=== PATIENT | male | born 1965 | race Caucasian/White ===

== ENCOUNTER 2018-06-22 11:17 | Emergency (ER) | payer OTHER, MEDICAID, SELFPAY ==
--- NOTE | 2018-06-22 11:19 | ED_ITS ---
HPI - Extremity Injury (Upper) General Chief Complaint: Extremity Injury, Upper Stated Complaint: POSSIBLY SNAPPED OR TORE TENDON IN FINGER Time Seen by Provider: 06/22/18 11:18 Source: patient Mode of arrival: ambulatory Limitations: no limitations History of Present Illness HPI narrative: Patient is here for evaluation of left middle finger injury. Patient states that yesterday he was at [employer] and was trying to get a box of tile from the back of a shelf. He states that he could only reach the shelf by the very tip of his left middle finger. As he tried to pull he felt 3 ?pops? at the base of his finger. He states that since then he has had pain at this area and some bruising. Took some Advil last evening and also iced the finger. Related Data Previous Rx's Medication Instructions Recorded hydrocodone-acetaminophen 1 tab PO Q6H PRN #5 tab 06/22/18 Review of Systems Constitutional Denies fever(s) Musculoskeletal Comments: Pain at the base of the left middle finger Integumentary/Breasts Comments: Bruising on the palm of his hand Neurologic Comments: No change in sensation left hand Hematologic/Lymphatic Denies easy bleeding and Denies easy bruising PFSH Social History Smoking Status: Never smoker Comment: Reviewed patient's past medical surgical family and social history Exam Initial Vital Signs Initial Vital Signs: Vital Signs Temperature 98.2 F 06/22/18 11:31 Pulse Rate 80 06/22/18 11:31 Respiratory Rate 20 06/22/18 11:31 Blood Pressure 130/72 H 06/22/18 11:31 Pulse Oximetry 100 06/22/18 11:31 Const General: cooperative, healthy appearing, comfortable, well developed, well groomed and No acute distress Orientation: alert, awake and oriented x3 Cardio Pulses: radial pulses present on the left Skin Lesions: no lesions Other: Mild ecchymosis at the base of the left middle finger over the MCP joint on the palmar aspect of the hand Neuro Other: Sensation intact to light touch left upper extremity specifically the left middle finger Extrem Other: Left wrist unremarkable Left hand unremarkable except for tenderness to palpation over the MCP joint and proximal middle finger of the left hand. Swelling of the left middle finger. Patient is able to flex and extend the MCP, PIP, D IP joints in isolation both active and passive. Does have some difficulty with flexing of the PIP joint secondary to swelling just proximal to this area. Course Orders Ordered: ED Orders 06/22/18 11:33 XR hand LT min 3V Stat Vital Signs - 8 hr 06/22/18 11:31 Temperature 98.2 F Pulse Rate 80 Respiratory Rate 20 Blood Pressure 130/72 H Pulse Oximetry 100 MDM - Extremity Injury (Upper) Imaging Data X-ray left hand: My impression: No fractures No dislocations MDM Narrative Medical decision making narrative: Patient is neurovascularly intact. Is able to flex and extend active and passive at all joints of the left middle finger altogether and in isolation. Currently have low suspicion for a complete disruption of any flexor tendons. No fractures noted on the x-ray. Will place the patient in a finger splint for soft tissue rest that he can take off to shower and wash his hands. He was instructed that if his symptoms do not improve he should contact his primary care doctor for a referral to see a hand specialist. He expressed understanding and agreement with plan Discharge Plan Departure Patient Disposition: Home, Self-Care Clinical Impression: Injury of finger of left hand Instructions: How To Perform RICE (Rest, Ice, Compress, Elevate) Activity Restrictions/Additional Instructions: The splint can be removed to shower and wash your hands. Keep it on for the next week for soft tissue rest. You can ice your finger. Keep your hand elevated as much as possible. If your symptoms do not improve contact her primary care doctor to discuss the indications for referral to see Orthopedic surgery. Prescriptions: New hydrocodone-acetaminophen 5-325 mg tablet 1 tab PO Q6H PRN (Reason: pain) Qty: 5 RF: 0
[2018-06-22 11:31] VITALS: BP 130/72; PULSE 80; RESP 20; TEMP 36.8; O2SAT 100
--- NOTE | 2018-06-22 11:33 | DI.RAD.S_ITS ---
PROCEDURE: XR HAND LT MIN 3V INDICATIONS: Pain after injury of MCP of middle finger TECHNIQUE: 3 views of the hand(s) acquired. COMPARISON: None. FINDINGS: Bones: No fractures or dislocations. Carpal bones are normally aligned. No suspicious bony lesions. Soft tissues: No suspicious soft tissue calcifications. IMPRESSION: No acute radiographic findings. If pain persists, repeat study in 5-7 days is recommended to exclude occult fracture. Dictated by: Calli Valentin M.D. on 06/22/2018 at 12:05 Approved by: Calli Valentin M.D. on 06/22/2018 at 12:05
[2018-06-22 12:14] VITALS: BP 109/68; PULSE 58; RESP 14; O2SAT 99
== END 2018-06-22 12:15 | disposition home or self-care (01) ==
PROVIDERS: Emergency Provider Emergency Medicine; PCP Family Medicine
DX: S69.92XA Unspecified injury of left wrist, hand and finger(s), initial encounter (principal); X50.9XXA Other and unspecified overexertion or strenuous movements or postures, initial encounter
CPT/HCPCS: 29130; 73130; 99283

== ENCOUNTER → 2018-07-19 06:44 | Outpatient (CLI) | payer OTHER, MEDICAID, SELFPAY ==
--- NOTE | 2018-07-19 | DI.MRI.S_ITS ---
PROCEDURE: MR HAND LT WO/W CON INDICATIONS: LEFT HAND INJURY TECHNIQUE: Noncontrast coronal T1 spin echo and T2 fast spin echo with fat saturation, axial proton density fast spin echo and T2 fast spin echo with fat saturation, axial T1 spin echo with fat saturation, sagittal T1 spin echo and STIR through the hand and fingers. Post-contrast axial, coronal, and sagittal T1 spin echo through the hand centered at the 3rd digit. COMPARISON: [facility], CR, XR HAND LT MIN 3V, 06/22/2018, 11:15. FINDINGS: Image quality: Excellent. Bones: The bones are normally aligned, without marrow contusions or fractures. No intra-osseous lesions. Interphalangeal joints: The accessory and proper collateral ligaments appear intact. The volar plates appear grossly intact, with evaluation limited by the large [id number]. The extensor central slips appear intact on sagittal images. Metacarpophalangeal joints: The accessory and proper collateral ligaments appear intact, as well as the volar plate and adjacent deep transverse metacarpal ligaments. The sagittal bands of the extensor lord appear grossly preserved. Extensor apparatus: The central slips insert normally on the middle phalangeal base. The conjoint and terminal tendons insert normally on the distal phalangeal bases. More proximal portions of the extensor tendons also appear normal. Flexor apparatus: The flexor digitorum superficialis and profundus tendons both appear grossly intact with peritendinous edema and small amount of fluid along the course of the 3rd flexor tendons. There is mild volar displacement of the 3rd flexor tendons at the proximal interphalangeal joint as well as along the proximal phalanx. Findings likely represent disruption of the A3 laquita and as well as possible disruption of the A2 and A4 pulleys. There is minimal peritendinous edema also noted along the 4th flexor tendons without associated displacement to suggest laquita disruption. Soft tissues: Visualized muscles demonstrate normal bulk and internal signal. No intramuscular masses identified. No ganglion cysts. IMPRESSION: 1. Peritendinous edema and fluid demonstrated along the 3rd flexor tendons compatible with a mild strain with associated volar displacement likely representing disruption of the A2 laquita and possibly the A2 and A4 pulleys. Dictated by: Heriberto Brown M.D. on 07/19/2018 at 11:07 Approved by: Heriberto Brown M.D. on 07/19/2018 at 11:27
== END ==
PROVIDERS: Family Provider Family Medicine; PCP Family Medicine; Visit Provider Family Medicine
DX: S69.92XA Unspecified injury of left wrist, hand and finger(s), initial encounter (principal)
CPT/HCPCS: 73220; A9579

== ENCOUNTER → 2019-08-15 07:16 | Outpatient (CLI) | payer OTHER, SELFPAY ==
[2019-08-15 07:48] LABS: Add Manual Diff / Slide Review NO; Basophils Absolute Auto 0 /uL (0-100); Basophils Percent Auto 1.5 % (0-2); Eosinophils Absolute Auto 200 /uL (0-450); Eosinophils Percent Auto 5.6 % (2-4); Hematocrit 43.5 % (41-53); Hemoglobin 15.1 g/dL (13.5-17.5); Lymphocytes Absolute Auto 1400 /uL (1100-4500); Lymphocytes Percent Auto 44.6 % (25-40); Mean Corpuscular HGB Conc 34.7 % (30-36); Mean Corpuscular Hemoglobin 30.2 PG (26-34); Mean Corpuscular Volume 87.3 fL (80-100); Monocytes Absolute Auto 300 /uL (0-900); Monocytes Percent Auto 8.7 % (3-14); Neutrophils Absolute Auto 1200 /uL (1500-7000); Neutrophils Percent Auto 39.6 % (50-75); Platelet Count 187 X10^3/uL (150-400); Red Blood Cell Count 4.98 X10^6/uL (4.5-5.9); Red Cell Distribution Width 12.6 % (11.6-14.8); White Blood Cell Count 3.1 X10^3/uL (4.5-11.0)
[2019-08-15 08:27] LABS: HEMOLYSIS < 15 (0-50); Iron 94 ug/dL (49-181)
[2019-08-15 08:29] LABS: Alanine Aminotransferase 18 IU/L (21-72); Albumin 4.5 g/dL (3.5-5.0); Albumin Globulin Ratio 1.8 (1.0-2.8); Alkaline Phosphatase 52 U/L (38-126); Aspartate Aminotransferase 31 IU/L (17-59); Bilirubin Total 0.9 mg/dL (0.2-1.3); Blood Urea Nitrogen 12 mg/dL (9-20); Calcium 9.6 mg/dL (8.4-10.2); Carbon Dioxide 28 mmol/L (22-32); Chloride 105 mmol/L (98-107); Cholesterol 169 mg/dL (140-199); Estimated Glomerular Filt Rate > 60.0 mL/min (>60); Globulin 2.5 g/dL (1.7-4.1); Glucose 76 mg/dL (70-100); HDL Cholesterol 50 mg/dL (40-60); HEMOLYSIS < 15 (0-50); LDL Cholesterol Calculated 81 mg/dL (<100); Potassium 4.2 mmol/L (3.4-5.1); Sodium 142 mmol/L (137-145); Triglycerides 192 mg/dL (35-150)
[2019-08-15 08:37] LABS: Percent Iron Saturation 31 % (20-50); Total Iron Binding Capacity 303 ug/dL (261-462); Transferrin 250 mg/dL (206-381)
[2019-08-15 08:45] LABS: Vitamin D 25 Hydroxy (D3) 33.7 ng/mL (30.0-100.0)
[2019-08-15 08:58] LABS: Prostate Specific Antigen Scrn 0.496 ng/mL (0.1-4.0)
[2019-08-15 09:00] LABS: TSH w/ Reflex to FT4 1.92 uIU/mL (0.47-4.68)
[2019-08-15 09:17] LABS: Vitamin B12 392 pg/mL (239-931)
== END ==
PROVIDERS: PCP Family Medicine; Visit Provider Family Medicine
DX: R10.9 Unspecified abdominal pain (principal); Z13.6 Encounter for screening for cardiovascular disorders; Z12.5 Encounter for screening for malignant neoplasm of prostate
CPT/HCPCS: 36415; 80053; 80061; 82306; 82607; 83516; 83540; 83550; 84443; 85025; G0103

== ENCOUNTER → 2020-04-20 14:14 | Outpatient (CLI) | payer OTHER, SELFPAY ==
--- NOTE | 2020-04-20 14:15 | DI.MRI.S_ITS ---
PROCEDURE: MR LUMBAR SPINE WO CON INDICATIONS: LBP with radiculopathy TECHNIQUE: Noncontrast sagittal T1 spin echo and T2 fast echo, sagittal STIR, axial T1 and T2 fast spin echo through the lumbar spine. In cases with scoliosis, additional coronal T2 fast spin echo may be performed. COMPARISON: None. FINDINGS: Image quality: Excellent. Alignment and Curvature: There is normal bony alignment. Bone Marrow: Minimal reactive endplate changes adjacent to the L4-L5 disc. Small, benign, intraosseous hemangioma noted in the L1 vertebral body. No acute vertebral body compression fractures. Spinal Cord: Conus medullaris terminates at the L1 level. Visualized cord demonstrates normal signal and size. Paraspinous Soft Tissues: No paravertebral masses. L1-L2: Normal appearance. L2-L3: Normal appearance. L3-L4: Normal appearance. L4-L5: Loss of disc signal. Mild, diffuse disc bulge. Small left foraminal disc protrusion. Mild bilateral facet hypertrophy. No central stenosis. Mild right and moderate left neural foraminal narrowing. Left foraminal disc protrusion abuts and slightly compresses the exiting left L4 nerve root. L5-S1: Slight loss of disc signal. Minimal, diffuse disc bulge. Mild bilateral facet hypertrophy. No central stenosis. No neural foraminal narrowing. Focal high intensity zone is noted in the left subarticular annulus compatible with a fissure. IMPRESSION: 1. Mild L4-L5 and L5-S1 degenerative disc disease. 2. Mild L4-L5 and L5-S1 facet arthropathy. 3. Small left foraminal L4-L5 disc protrusion which abuts and slightly compresses the exiting left L4 nerve root. Please correlate clinically. 4. No central stenosis 5. Mild right and moderate left L4-L5 neural foraminal narrowing. 6. L5-S1 disc annulus fissure. Dictated by: Darby Pabon MD, PhD on 04/20/2020 at 15:19 Approved by: Darby Pabon MD, PhD on 04/20/2020 at 15:23
== END ==
PROVIDERS: PCP Family Medicine; Referring Provider Family Medicine; Visit Provider Family Medicine
DX: M54.5 Low back pain (principal); M51.16 Intervertebral disc disorders with radiculopathy, lumbar region; M51.17 Intervertebral disc disorders with radiculopathy, lumbosacral region; M47.27 Other spondylosis with radiculopathy, lumbosacral region; M47.26 Other spondylosis with radiculopathy, lumbar region; M48.061 Spinal stenosis, lumbar region without neurogenic claudication
CPT/HCPCS: 72148

== ENCOUNTER 2020-09-07 14:03 | Inpatient (IN) | payer OTHER, SELFPAY ==
[2020-09-07 14:08] VITALS: BP 135/85; PULSE 61; RESP 16; TEMP 36.4; O2SAT 100; BMI 25.8
--- NOTE | 2020-09-07 14:27 | ED_ITS ---
HPI - Abdominal Pain General Chief Complaint: Abdominal Pain Stated Complaint: LOWER LEFT SEVERE PAIN Time Seen by Provider: 09/07/20 14:19 Source: patient Mode of arrival: Family Vehicle Limitations: no limitations History of Present Illness HPI narrative: Patient complains slow onset of left lower quadrant pain wo rsening yesterday. Worse with movement. Worse with walking. No nausea vomiting diarrhea blood in stools or black stools or urinary complaints. Last colonoscopy 7 years ago. No abnormal findings according to patient. No prior history of diverticulitis or kidney stones. Pain does not radiate MD complaint: abdominal pain Related Data Previous Rx's Medication Instructions Recorded protriptyline 5 mg tablet 5 mg PO DAILY #30 tab 08/13/19 methocarbamol 500 mg tablet 500 mg PO TID PRN #30 tab 04/14/20 oxycodone 5 mg capsule 5 mg PO Q8H PRN #20 cap 04/20/20 gabapentin 300 mg capsule 300 mg PO .COMPLEX #90 cap 04/28/20 methylprednisolone 4 mg tablets in See Rx Instructions PO PER PKG DIR 04/28/20 a dose pack #21 each Allergies Allergy/AdvReac Type Severity Reaction Status Date / Time meperidine [From Demerol] AdvReac Intermediate anxiety, Verified 04/28/20 08:16 dizziness, nausea fentanyl AdvReac Mild anxiety, Verified 04/28/20 08:16 dizziness, nausea, depression Review of Systems Review of Systems Narrative: GENERAL: Denies chills, fatigue, malaise, fever, sweats. HEENT: Denies sinus pain, ear pain, sore throat, difficulty swallowing RESPIRATORY: Denies dyspnea, cough CARDIOVASCULAR: Denies chest pain, palpitations, edema, GASTROINTESTINAL: Denies nausea, vomiting, complains abdominal pain, denies diarrhea, constipation, melena. : Denies dysuria, frequency, hematuria MUSCULOSKELETAL: denies muscle or bony pain SKIN: Denies rash, skin lesions NEUROLOGIC: Denies weakness, headache, numbness, change in speech, confusion PSYCHIATRIC: No SI or HI or hallucinations ROS Unobtainable: All systems reviewed & are unremarkable except as noted in HPI and below Patient History Medical History Chronic back pain (Chronic 1991) Fractures (Resolved 1988) Herniated nucleus pulposus, L4-5 (Acute) Lumbosacral radiculopathy at L5 (Acute) Shoulder pain (Chronic 2013) Surgical History Anesthesia (Resolved) History of excision of mass (Resolved 1981) History of nasal surgery (Resolved 1979) History of sinus surgery (Resolved 2013) Status post wrist surgery (Resolved 1998) Status post wrist surgery (Resolved 1989) Status post wrist surgery (Resolved 1988) Family History Father No problems noted. Grandfather No problems noted. Grandmother No problems noted. Mother No problems noted. Grandfather No problems noted. Grandmother No problems noted. Social History marital status: pets and animals: Yes education level: other occupational status: employed other: music,diving,boating seatbelt use: always helmet use: Yes water heater temp set < 120 deg: Yes working smoke detector in home: Yes fire extinguisher in home: Yes carbon monox detector in home: Yes firearms in home: Yes Smoking Status: Never smoker alcohol intake: current during the past year weight has: remained stable well-balanced diet: daily or most days daily servings fruits/ve-4 caffeine: Yes eating out: 1-3 times/week Type(s) of exercise: decline to answer frequency: 3-4 times per week duration: 45-60 minutes/day Smoking Status: Never smoker alcohol intake frequency: holidays/special occasions only Substance Use Type: does not use Exam Narrative Exam Narrative: GENERAL: patient appears stated age. Well-nourished, well- developed patient, in no distress, not toxic not dyspneic HEAD: Normocephalic. EYES: Pupils equal round and reactive. No scleral icterus. No injection no discharge ENT: Mucous membranes moist. No drooling no tongue elevation no trismus no malocclusion NECK: Trachea midline. Non tender CARDIOVASCULAR: Regular rate and rhythm without murmurs, gallops, or rubs. RESPIRATORY: Clear to auscultation. Breath sounds equal bilaterally. No wheezes, rales, or rhonchi. GASTROINTESTINAL: Abdomen soft, reproducible tenderness touch left lower quadrant. No peritoneal signs. Bowel sounds present. EXTREMITIES: No gross deformities. NEURO: AOx4. SKIN: Warm and dry PSYCH: Not anxious, is cooperative Initial Vital Signs Initial Vital Signs: Vital Signs Temperature 97.5 F L 09/07/20 14:08 Pulse Rate 61 09/07/20 14:08 Respiratory Rate 16 09/07/20 14:08 Blood Pressure 135/85 09/07/20 14:08 Pulse Oximetry 100 09/07/20 14:08 Course Course Course Narrative: Still in pain after Dilaudid and morphine. Decision to Admit Date: 09/07/20 Decision to Admit time: 16:28 Orders Ordered: ED Orders 09/07/20 14:20 Complete Blood Count AUTO DIFF Stat Comprehensive Metabolic Panel Stat 09/07/20 14:30 CT abdomen pelvis w con Stat Gabapentin (Neurontin) 300 mg PO .COMPLEX TRACEE Hydromorphone HCl (Dilaudid) 1 mg IV Q4H PRN PRN Reason: Pain, Severe (7-10) Last Admin: 09/07/20 18:27 Dose: 1 mg Documented by: FLORENCIO Lactated Ringer's (Lactated Ringers) 1,000 mls @ 100 mls/hr IV CONT TRACEE Last Admin: 09/07/20 18:36 Dose: 100 mls/hr Documented by: FLORENCIO Ciprofloxacin (Cipro) 400 mg in 200 mls @ 200 mls/hr IV Q12H TRACEE Metronidazole (Flagyl) 500 mg in 100 mls @ 100 mls/hr IV Q8H TRACEE Ketorolac Tromethamine (Toradol) 30 mg IV Q6HR TRACEE Stop: 09/12/20 17:07 Last Admin: 09/07/20 18:35 Dose: 30 mg Documented by: FLORENCIO Methocarbamol (Robaxin) 500 mg PO TID PRN PRN Reason: back pain Last Admin: 09/07/20 18:28 Dose: 500 mg Documented by: FLORENCIO Morphine Sulfate (Morphine) 4 mg IV Q4HR PRN PRN Reason: Pain, Severe (7-10) Naloxone HCl (Narcan) 0.2 mg IV Q2MIN PRN PRN Reason: Opiate Reversal Protriptyline 5 Mg 5 mg PO DAILY TRACEE Ondansetron HCl (Zofran) 4 mg IV Q8HR PRN PRN Reason: Nausea And Vomiting Discontinued Medications Hydromorphone HCl (Dilaudid) 1 mg IV NOW ONE Stop: 09/07/20 15:44 Last Admin: 09/07/20 16:00 Dose: 1 mg Documented by: SUSSY Hydromorphone HCl (Dilaudid) 1 mg IV NOW ONE Stop: 09/07/20 17:27 Last Admin: 09/07/20 17:33 Dose: 1 mg Documented by: SUSSY Sodium Chloride (Normal Saline 0.9%) 1,000 mls @ 1,000 mls/hr IV BOLUS ONE Stop: 09/07/20 15:25 Last Infusion: 09/07/20 16:00 Dose: 0 mls/hr Documented by: Admin: 09/07/20 14:46 Dose: 1,000 mls/hr Documented by: SUSSY Metronidazole (Flagyl) 500 mg in 100 mls @ 100 mls/hr IV NOW ONE Stop: 09/07/20 17:26 Last Admin: 09/07/20 16:47 Dose: 100 mls/hr Documented by: SUSSY Morphine Sulfate (Morphine) 4 mg IV NOW ONE Stop: 09/07/20 14:27 Last Admin: 09/07/20 14:46 Dose: 4 mg Documented by: SUSSY Ondansetron HCl (Zofran) 4 mg IV NOW ONE Stop: 09/07/20 14:27 Last Admin: 09/07/20 14:46 Dose: 4 mg Documented by: SUSSY Reevaluation(s) Reevaluation #1: Patient still has pain after morphine and Dilaudid. Reviewed with patient results. He agrees with admission for pain control and IV antibiotics Time: 16:29 Consultations Consultation #1: s/w pcp dr hahn...will see pt in ER ..agrees with admit Vital Signs Vital signs: Vital Signs - 8 hr 09/07/20 14:08 09/07/20 16:15 Temperature 97.5 F L Pulse Rate 61 54 L Respiratory Rate 16 16 Blood Pressure 135/85 128/68 Pulse Oximetry 100 100 MDM - Abdominal Pain Differential Diagnosis Differential diagnosis: Likely abdominal pain, acute appendicitis, calculus of kidney, diverticulitis and small bowel obstruction Lab Data Attestation: I reviewed the patient's lab results. Result diagrams: 09/07/20 14:20 09/07/20 14:20 Labs: Lab Results 09/07/20 09/07/20 Range/Units 14:20 14:20 WBC 7.3 (4.5-11.0) X10^3/uL RBC 5.01 (4.5-5.9) X10^6/uL Hgb 15.2 (13.5-17.5) g/dL Hct 44.0 (41-53) % MCV 87.7 (80-100) fL MCH 30.3 (26-34) PG MCHC 34.6 (30-36) % RDW 12.8 (11.6-14.8) % Plt Count 194 (150-400) X10^3/uL Neut % (Auto) 67.4 (50-75) % Lymph % (Auto) 23.1 L (25-40) % Graham % (Auto) 7.5 (3-14) % Eos % (Auto) 1.5 L (2-4) % Baso % (Auto) 0.5 (0-2) % Neut # (Auto) 4900 (5287-6861) /uL Lymph # (Auto) 1700 (3965-8170) /uL Graham # (Auto) 500 (0-900) /uL Eos # (Auto) 100 (0-450) /uL Baso # (Auto) 0 (0-100) /uL Sodium 136 L (137-145) mmol/L Potassium 4.3 (3.4-5.1) mmol/L Chloride 102 (98-107) mmol/L Carbon Dioxide 27 (22-32) mmol/L BUN 16 (9-20) mg/dL Creatinine 0.97 (0.66-1.25) mg/dL Estimated GFR > 60.0 (>60) mL/min BUN/Creatinine Ratio 16.5 (6-22) Glucose 90 (70-100) mg/dL Calcium 9.2 (8.4-10.2) mg/dL Total Bilirubin 1.1 (0.2-1.3) mg/dL AST 33 (17-59) IU/L ALT 27 (<50) IU/L Alkaline Phosphatase 59 (38-126) U/L Total Protein 7.6 (6.3-8.2) g/dL Albumin 4.7 (3.5-5.0) g/dL Globulin 2.9 (1.7-4.1) g/dL Albumin/Globulin Ratio 1.6 (1.0-2.8) Imaging Data CT scan - abdomen/pelvis: Radiologist's Impression: [address] [address] [address] Scan Report Signed Patient: Gm Delgado [facility]#: [id number] : 1965Acct:[id number] Age/Sex: 55 / MDate of Service: 09/07/20 Loc: ED Accession Number: [id number] Procedure: CT abdomen pelvis w con Ordering Provider: Ángel Chung MD PROCEDURE: CT ABDOMEN PELVIS W CON INDICATIONS: IV contrast only/left lower quadrant pain TECHNIQUE: After the administration of intravenous contrast, 5 mm thick sections acquired from the diaphragm to the symphysis. 5 mm coronal and sagittal reformats were acquired. For radiation dose reduction, the following was used: automated exposure control, a djustment of mA and/or kV according to patient size. COMPARISON: None. FINDINGS: Image quality: Excellent. ABDOMEN: Lung bases: Lung bases are clear. Heart size is normal. Solid organs: Liver is normal in size. Curvilinear enhancing focus in the inferior margin of the right lobe of the liver, (2/34). Gallbladder is unremarkable. Biliary system is non dilated. Pancreas enhances normally. Spleen is normal in size and enhancement. No adrenal nodules. Kidneys demonstrate normal size and enhancement, without hydronephrosis. Small simple cyst in the right kidney. Punctate nonobstructing kidney stone in the left kidney, (2/24). Peritoneum and bowel: Moderate inflammatory change in the left lower quadrant surrounding the distal descending colon, (4/27). This is adjacent to a colonic diverticuli. Mild diverticulosis. No extraluminal gas or loculated fluid collection. No small bowel obstruction. Normal appendix. No pneumoperitoneum. Nodes and vessels: No retroperitoneal or mesenteric adenopathy by size criteria. Aorta and inferior vena cava are normal in size. Miscellaneous: No ventral hernias. Periumbilical scar. PELVIS: Genitourinary: Bladder is unremarkable. Trace free fluid in the pelvis. Miscellaneous: Question of bilateral fat containing inguinal hernias. No adenopathy. Bones: No suspicious bony lesions. No vertebral body compression fractures. IMPRESSION: 1. Moderate acute sigmoid colon diverticulitis. No loculated fluid collection to suggest abscess. 2. Enhancing focus in the inferior margin of the liver. This may represent a hemangioma or perfusion abnormality. 3. A punctate nonobstructing left kidney stone. Dictated by: Michael Jorgensen M.D. on 09/07/2020 at 14:48 Approved by: Michael Jorgensen M.D. on 09/07/2020 at 15:02 MDM Narrative Medical decision making narrative: Appropriate for admission. For pain control. Requiring morphine and Dilaudid. Discharge Plan Departure Patient Disposition: Admitted as Observation Clinical Impression: Diverticulitis of sigmoid colon Referrals: Melisa Hahn MD [Primary Care Provider] - Admit Date/Time: 09/07/20 16:52 Admit Provider: Melisa Hahn
--- NOTE | 2020-09-07 14:30 | DI.CT.S_ITS ---
PROCEDURE: CT ABDOMEN PELVIS W CON INDICATIONS: IV contrast only/left lower quadrant pain TECHNIQUE: After the administration of intravenous contrast, 5 mm thick sections acquired from the diaphragm to the symphysis. 5 mm coronal and sagittal reformats were acquired. For radiation dose reduction, the following was used: automated exposure control, adjustment of mA and/or kV according to patient size. COMPARISON: None. FINDINGS: Image quality: Excellent. ABDOMEN: Lung bases: Lung bases are clear. Heart size is normal. Solid organs: Liver is normal in size. Curvilinear enhancing focus in the inferior margin of the right lobe of the liver, (2/34). Gallbladder is unremarkable. Biliary system is non dilated. Pancreas enhances normally. Spleen is normal in size and enhancement. No adrenal nodules. Kidneys demonstrate normal size and enhancement, without hydronephrosis. Small simple cyst in the right kidney. Punctate nonobstructing kidney stone in the left kidney, (2/24). Peritoneum and bowel: Moderate inflammatory change in the left lower quadrant surrounding the distal descending colon, (4/27). This is adjacent to a colonic diverticuli. Mild diverticulosis. No extraluminal gas or loculated fluid collection. No small bowel obstruction. Normal appendix. No pneumoperitoneum. Nodes and vessels: No retroperitoneal or mesenteric adenopathy by size criteria. Aorta and inferior vena cava are normal in size. Miscellaneous: No ventral hernias. Periumbilical scar. PELVIS: Genitourinary: Bladder is unremarkable. Trace free fluid in the pelvis. Miscellaneous: Question of bilateral fat containing inguinal hernias. No adenopathy. Bones: No suspicious bony lesions. No vertebral body compression fractures. IMPRESSION: 1. Moderate acute sigmoid colon diverticulitis. No loculated fluid collection to suggest abscess. 2. Enhancing focus in the inferior margin of the liver. This may represent a hemangioma or perfusion abnormality. 3. A punctate nonobstructing left kidney stone. Dictated by: Michael Jorgensen M.D. on 09/07/2020 at 14:48 Approved by: Michael Jorgensen M.D. on 09/07/2020 at 15:02
[2020-09-07 14:39] LABS: Add Manual Diff / Slide Review NO; Alanine Aminotransferase 27 IU/L (<50); Albumin 4.7 g/dL (3.5-5.0); Albumin Globulin Ratio 1.6 (1.0-2.8); Alkaline Phosphatase 59 U/L (38-126); Aspartate Aminotransferase 33 IU/L (17-59); BUN Creatinine Ratio 16.5 (6-22); Basophils Absolute Auto 0 /uL (0-100); Basophils Percent Auto 0.5 % (0-2); Bilirubin Total 1.1 mg/dL (0.2-1.3); Blood Urea Nitrogen 16 mg/dL (9-20); Calcium 9.2 mg/dL (8.4-10.2); Carbon Dioxide 27 mmol/L (22-32); Chloride 102 mmol/L (98-107); Eosinophils Absolute Auto 100 /uL (0-450); Eosinophils Percent Auto 1.5 % (2-4); Estimated Glomerular Filt Rate > 60.0 mL/min (>60); Globulin 2.9 g/dL (1.7-4.1); Glucose 90 mg/dL (70-100); HEMOLYSIS 21 (0-50); Hemoglobin 15.2 g/dL (13.5-17.5); Lymphocytes Absolute Auto 1700 /uL (1100-4500); Lymphocytes Percent Auto 23.1 % (25-40); Mean Corpuscular HGB Conc 34.6 % (30-36); Mean Corpuscular Hemoglobin 30.3 PG (26-34); Mean Corpuscular Volume 87.7 fL (80-100); Monocytes Absolute Auto 500 /uL (0-900); Monocytes Percent Auto 7.5 % (3-14); Neutrophils Absolute Auto 4900 /uL (1500-7000); Neutrophils Percent Auto 67.4 % (50-75); Platelet Count 194 X10^3/uL (150-400); Potassium 4.3 mmol/L (3.4-5.1); Red Blood Cell Count 5.01 X10^6/uL (4.5-5.9); Red Cell Distribution Width 12.8 % (11.6-14.8); Sodium 136 mmol/L (137-145); Total Protein 7.6 g/dL (6.3-8.2); White Blood Cell Count 7.3 X10^3/uL (4.5-11.0)
[2020-09-07] MEDS: ONDANSETRON 4 MG/2 ML INJ IV (14:46)
[2020-09-07] MEDS: SODIUM CHLORIDE 0.9% 1,000 ML 1000 ML IV (14:46)
[2020-09-07] MEDS: MORPHINE 4 MG/ML INJ IV ×2 (14:46→21:35)
[2020-09-07] MEDS: HYDROMORPHONE 1 MG INJ IV ×3 (16:00→18:27)
[2020-09-07 16:15] VITALS: BP 128/68; PULSE 54; RESP 16; O2SAT 100
[2020-09-07] MEDS: metroNIDAZOLE 500 MG/100 ML PIGGYBACK 100 MG IV ×2 (16:47→23:55)
--- NOTE | 2020-09-07 17:09 | P.HP_ITS ---
History of Present Illness History of Present Illness Date Patient Seen: 09/07/20 Time Patient Seen: 17:09 Chief complaint: LOWER LEFT SEVERE PAIN Narrative: Pt is a 55yo man with chronic back pain who presented with severe abdominal pain. The pt reports that the evening of 09/03 he developed mild abdominal pain after eating chicken. He assumed it was due to the chicken, but when he woke in the morning the pain was more severe. It has continued to worsen since that time. Yesterday, eating anything made the pain much more severe. He tried activated charcoal and pepto bismal, which did not help the pain. Today, he was only able to eat an egg and drink some broth. He has not been able to ambulate due to the severity of the pain. The pain is sharp in na ture, and located in his left lower quadrant. It does not radiate. He denies any significant nausea, vomiting, diarrhea, constipation. He denies any fevers. He has been having black stools due to the pepto bismal and charcoal. He denies any hematochezia. He has no hx of severe abdominal pain in the past. Patient History Medical History Chronic back pain (Chronic 1991) Fractures (Resolved 1988) Herniated nucleus pulposus, L4-5 (Acute) Lumbosacral radiculopathy at L5 (Acute) Shoulder pain (Chronic 2013) Surgical History Anesthesia (Resolved) History of excision of mass (Resolved 1981) History of nasal surgery (Resolved 1979) History of sinus surgery (Resolved 2013) Status post wrist surgery (Resolved 1998) Status post wrist surgery (Resolved 1989) Status post wrist surgery (Resolved 1988) Family & Social History Family History Father No problems noted. Grandfather No problems noted. Grandmother No problems noted. Mother No problems noted. Grandfather No problems noted. Grandmother No problems noted. Social History: other music,diving,boating Safety & Behavioral: Feels Safe in Current Yes Environment Been Physically Hurt or No Threatened By a Person Tobacco & Substance use: Smoking Status Never smoker alcohol intake current alcohol intake frequency holiday/special occasion Substance Use Type does not use Meds Home Medications and Allergies Home Medications Medication Instructions Recorded Confirmed Type protriptyline 5 mg tablet 5 mg PO DAILY #30 tab 08/13/19 08/13/19 Rx methocarbamol 500 mg tablet 500 mg PO TID PRN #30 tab 04/14/20 04/14/20 Rx oxycodone 5 mg capsule 5 mg PO Q8H PRN #20 cap 04/20/20 04/20/20 Rx gabapentin 300 mg capsule 300 mg PO .COMPLEX #90 cap 04/28/20 04/28/20 Rx methylprednisolone 4 mg tablets in See Rx Instructions PO PER PKG DIR 04/28/20 04/28/20 Rx a dose pack #21 each Allergies Allergy/AdvReac Type Severity Reaction Status Date / Time meperidine [From Demerol] AdvReac Intermediate anxiety, Verified 04/28/20 08:16 dizziness, nausea fentanyl AdvReac Mild anxiety, Verified 04/28/20 08:16 dizziness, nausea, depression Exam Vital Signs (past 8 hours): - 09/07/20 14:08 09/07/20 16:15 Temperature 97.5 F L Pulse Rate 61 54 L Respiratory Rate 16 16 Blood Pressure 135/85 128/68 Pulse Oximetry 100 100 Oxygen Delivery Method Room Air Narrative Exam Narrative: GEN - alert, cooperative, appears uncomfortable in bed with warm blanket across his abdomen HEENT - normocephalic and atraumatic, moist mucus membranes NECK - FROM, no adenopathy HEART - RRR, S1, S2 normal, no S3 or S4, no murmurs LUNGS - symmetric chest rise, no accessory muscles, clear to auscultation bilaterally ABD - flat, nondistended, normal bowel sounds, soft, exquisitely tender in the LLQ with significant guarding, no rebound or rigidity, RLQ tender due to pain from left side, upper quadrants nontender EXT - no cyanosis, clubbing or edema SKIN - no rashes or suspicious lesions NEURO - no gross deficits Objective Imaging CT scan - abdomen: Radiologist's impression: PROCEDURE: CT ABDOMEN PELVIS W CON INDICATIONS: IV contrast only/left lower quadrant pain TECHNIQUE: After the administration of intravenous contrast, 5 mm thick sections acquired from the diaphragm to the symphysis. 5 mm coronal and sagittal reformats were acquired. For radiation dose reduction, the following was used: automated exposure control, adjustment of mA and/or kV according to patient size. COMPARISON: None. FINDINGS: Image quality: Excellent. ABDOMEN: Lung bases: Lung bases are clear. Heart size is normal. Solid organs: Liver is normal in size. Curvilinear enhancing focus in the inferior margin of the right lobe of the liver, (2/34). Gallbladder is unremarkable. Biliary system is non dilated. Pancreas enhances normally. Spleen is normal in size and enhancement. No adrenal nodules. Kidneys demonstrate normal size and enhancement, without hydronephrosis. Small simple cyst in the right kidney. Punctate nonobstructing kidney stone in the left kidney, (2/24). Peritoneum and bowel: Moderate inflammatory change in the left lower quadrant surrounding the distal descending colon, (4/27). This is adjacent to a colonic diverticuli. Mild diverticulosis. No extraluminal gas or loculated fluid collection. No small bowel obstruction. Normal appendix. No pneumoperitoneum. Nodes and vessels: No retroperitoneal or mesenteric adenopathy by size criteria. Aorta and inferior vena cava are normal in size. Miscellaneous: No ventral hernias. Periumbilical scar. PELVIS: Genitourinary: Bladder is unremarkable. Trace free fluid in the pelvis. Miscellaneous: Question of bilateral fat containing inguinal hernias. No adenopathy. Bones: No suspicious bony lesions. No vertebral body compression fractures. IMPRESSION: 1. Moderate acute sigmoid colon diverticulitis. No loculated fluid collection to suggest abscess. 2. Enhancing focus in the inferior margin of the liver. This may represent a hemangioma or perfusion abnormality. 3. A punctate nonobstructing left kidney stone. Dictated by: Michael Jorgensen M.D. on 09/07/2020 at 14:48 Labs Result Diagrams: 09/07/20 14:20 09/07/20 14:20 Labs: Laboratory Results - last 24 hr 09/07/20 09/07/20 14:20 14:20 WBC 7.3 RBC 5.01 Hgb 15.2 Hct 44.0 MCV 87.7 MCH 30.3 MCHC 34.6 RDW 12.8 Plt Count 194 Neut % (Auto) 67.4 Lymph % (Auto) 23.1 L [place] % (Auto) 7.5 Eos % (Auto) 1.5 L Baso % (Auto) 0.5 Neut # (Auto) 4900 Lymph # (Auto) 1700 [place] # (Auto) 500 Eos # (Auto) 100 Baso # (Auto) 0 Sodium 136 L Potassium 4.3 Chloride 102 Carbon Dioxide 27 BUN 16 Creatinine 0.97 Estimated GFR > 60.0 BUN/Creatinine Ratio 16.5 Glucose 90 Calcium 9.2 Total Bilirubin 1.1 AST 33 ALT 27 Alkaline Phosphatase 59 Total Protein 7.6 Albumin 4.7 Globulin 2.9 Albumin/Globulin Ratio 1.6 Assessment & Plan Assessment & Plan narrative: 55yo man with a history of chronic back pain presenting with severe LLQ abdominal pain, CT scan showing diverticulitis. Pain difficult to control in the ED. 1) Diverticulitis: - Ciprofloxacin and Metronidazole IV to treat - IV Toradol for pain control (first line) - IV Morphine and Dilaudid for pain control (second line) - Clear liquid diet - mIVF overnight FEN: Clear liquid diet DVT ppx: SCDs Code: Full Dispo: Hopeful that with improved pain control, pt can discharge tomorrow on oral antibiotics. Admitted observation status.
[2020-09-07 17:35] LABS: COVID19 -Nasal RAPID Negative (Negative)
[2020-09-07 18:26] VITALS: BP 116/60; PULSE 64; RESP 20; TEMP 37.2; O2SAT 100
[2020-09-07] MEDS: methocarbamoL 500 MG TABLET PO (18:28)
[2020-09-07] MEDS: KETOROLAC 30 MG/ML VIAL IV ×2 (18:35→23:55)
[2020-09-07] MEDS: LACTATED RINGERS 1,000 ML 100 ML IV (18:36)
[2020-09-07] MEDS: CIPROFLOXACIN 400 MG/200 ML PIGGYBACK 200 MG IV (18:44)
[2020-09-07 19:21] VITALS: BMI 25.8
[2020-09-07 19:49] VITALS: BP 101/61; PULSE 65; RESP 18; TEMP 37.1; O2SAT 96
--- NOTE | 2020-09-07 22:26 | PC.NURSE ---
Pt arrived on unit at 1745, rating pain 8/10 L LQ. Ice helpful and .05 mg IVP dilaudid with 500 mg po robaxin. VSS, A and O x4, WBC = 7.3. LS clear, HRR. Tolerating ABOs and clear liquids well. Hypoactive BTs. Voiding qs clear yellow. Able to sleep.
[2020-09-08 00:18] VITALS: BP 111/61; PULSE 62; RESP 18; TEMP 37.1; O2SAT 97
[2020-09-08] MEDS: CIPROFLOXACIN 400 MG/200 ML PIGGYBACK 200 MG IV ×2 (06:08→18:55)
[2020-09-08] MEDS: KETOROLAC 30 MG/ML VIAL IV ×4 (06:08→23:50)
[2020-09-08] MEDS: LACTATED RINGERS 1,000 ML 100 ML IV ×2 (06:09→21:38)
[2020-09-08] MEDS: metroNIDAZOLE 500 MG/100 ML PIGGYBACK 100 MG IV ×2 (09:15→17:12)
[2020-09-08 09:45] VITALS: BP 91/47; PULSE 61; RESP 16; TEMP 36.6; O2SAT 98
[2020-09-08] MEDS: HYDROMORPHONE 1 MG INJ IV ×2 (10:40→14:26)
--- NOTE | 2020-09-08 10:48 | CM.DANOTE ---
DCP: Case received, EMR reviewed and met with patient. Introduced self and role. Was able to obtain information from patient regarding his baseline activity level prior to hospitalization, as well as living situation. DCP assessment completed with information currently available. Patient is a 55 year old male admitted yesterday afternoon to the care of the hospitalist team. PCP: Dr. Hahn. Payer: confirmed: [facility]. Patient came to the hospital via private vehicle secondary to having left lower abdominal pain. Patient here for Diverticulitis. Met briefly with patient. He had just ambulated to the bathroom. He is alert and oriented. Resides here in [place] with his spouse, Tayla. He is independent at baseline, and drives. He is hopeful that he can discharge home today. P: DCP to continue to follow. Patient should be able to go home when he is medically stable and can tolerate diet. Nora Simmons RN/[employer]
[2020-09-08 13:41] VITALS: BP 92/53; PULSE 64; RESP 14; O2SAT 98
--- NOTE | 2020-09-08 14:00 | PC.NURSE ---
Coming onto shift looking at fluids, I saw that this Flagyl was documented as infused at 0100, but It was still full in the bag. That infusion was skipped and the next one was done at 0900. Patient VSS, hypotensive today 98/57. Patient is in pain in L lower quad 5-05/05. PRN Dialudid 1mg as needed and scheduled Toradol. Patient is having runny, watery stools. Dr. Hahn is aware of patient's low BP, watery stools and pain. Patient asked for some TUMS. Dr. Hahn gave a verbal order for 500mg PRN.
[2020-09-08] MEDS: CALCIUM CARBONATE 500 MG TAB PO (14:20)
--- NOTE | 2020-09-08 14:20 | P.PN_ITS ---
Subjective Subjective Date Patient Seen: 09/08/20 Time Patient Seen: 07:50 Interval history: Pt reports ongoing significant LLQ abdominal pain. He does not like taking narcotics, and has been trying to rely on the IV Toradol. His pain has gone up somewhat as a result. He has been able to tolerate liquids moderately well. He is having very loose stools. Exam Vital Signs (past 8 hours): - 09/08/20 09:45 09/08/20 13:41 Temperature 97.8 F Pulse Rate 61 64 Respiratory Rate 16 14 Blood Pressure 91/47 L 92/53 L Pulse Oximetry 98 98 Oxygen Delivery Method Room Air Oxygen Flow Rate 0 Narrative Exam Narrative: Gen: NAD, laying in bed moving little CV: RRR, no murmurs Resp: clear to auscultation bilaterally Abd: soft, nondistended, normoactive bowel sounds, very tender to palpation LLQ with significant guarding, no rebound/rigidity - minimally improved from yesterd ay Ext: no edema Objective Labs Result Diagrams: 09/07/20 14:20 09/07/20 14:20 Labs: Laboratory Results - last 24 hr 09/07/20 09/07/20 09/07/20 14:20 14:20 17:05 WBC 7.3 RBC 5.01 Hgb 15.2 Hct 44.0 MCV 87.7 MCH 30.3 MCHC 34.6 RDW 12.8 Plt Count 194 Neut % (Auto) 67.4 Lymph % (Auto) 23.[address] [place] % (Auto) 7.5 Eos % (Auto) 1.5 L Baso % (Auto) 0.5 Neut # (Auto) 4900 Lymph # (Auto) 1700 [place] # (Auto) 500 Eos # (Auto) 100 Baso # (Auto) 0 Sodium 136 L Potassium 4.3 Chloride 102 Carbon Dioxide 27 BUN 16 Creatinine 0.97 Estimated GFR > 60.0 BUN/Creatinine Ratio 16.5 Glucose 90 Calcium 9.2 Total Bilirubin 1.1 AST 33 ALT 27 Alkaline Phosphatase 59 Total Protein 7.6 Albumin 4.7 Globulin 2.9 Albumin/Globulin Ratio 1.6 COVID-19 PCR Negative Assessment & Plan Assessment & Plan narrative: 55yo man with a history of chronic back pain presenting with severe LLQ abdominal pain, CT scan showing diverticulitis. Pain difficult to control in the ED. 1) Diverticulitis: Minimal improvement in symptoms thus far - Ciprofloxacin and Metronidazole IV to treat - IV Toradol for pain control (first line) - will need to d/c tomorrow morning - IV Morphine and Dilaudid for pain control (second line) - Full liquid diet - Continue mIVF FEN: Full liquid diet DVT ppx: SCDs Code: Full Dispo: Pt was hoping to d/c today, however pain still quite severe. Hopeful for discharge tomorrow. Quality VTE Deep Vein Thrombosis/Pulmonary Embolism Present on Admission: No
[2020-09-08 15:50] VITALS: BP 140/70; PULSE 78; RESP 20; TEMP 36.9; O2SAT 98
[2020-09-08] MEDS: MORPHINE 4 MG/ML INJ IV (17:12)
[2020-09-08] MEDS: OXYCODONE 5 MG/5 ML ORAL SOLUTION PO (21:29)
[2020-09-09 00:13] VITALS: BP 118/70; PULSE 99; RESP 18; TEMP 37.8; O2SAT 95
--- NOTE | 2020-09-09 00:41 | PC.NURSE ---
Addendum entered by Betsey Gonzales R.N. 09/09/20 06:59: Dr Smalls called to check on status of patient. Informed of continued 6/10 pain even with taking Oxycodone q2-3 hours. Also informed of dysuria and earlier elevated temperature. See new orders. Addendum entered by Betsey Gonzales R.N. 09/09/20 05:56: States pain is staying constant at 6/10 so medicated with scheduled Toradol as well as po Oxycodone. Addendum entered by Betsey Gonzales R.N. 09/09/20 03:46: States he was able to sleep at 1 hour intervals but pain remains at 6/10 but feels it is more tolerable. Assisted to bathroom and walks slowly and bent over guarding LLQ. When back to bed medicated with Oxycodone. Original Note: Patient is alert and oriented. Breath sounds CTA with RA sat of 95%. HRR. Denies nausea. Complains of 8/10 abdominal pain with more intense pain in LLQ. Abdomen is soft but tender and distended; guarding over LLQ. Medicated with Toradol which he states did not help and does not want to take IV pain medications; Dr Smalls contacted and new order received to decrease Oxycodone frequency as patient states that did help earlier. States he has burning with urination but denies frequency or urgency. Did have a temp of 100 earlier and is now 99.6. Ice pack applied to abdomen for comfort. Is able to move himself in bed. States he is feeling weak when out of bed so encouraged him to call for assistance rather than risking a fall and he verbalizes agreement. Bed alarm activated as reminder to call for staff. Refusing to wear SCD's stating he is unable to sleep with them on; reminded to ankle wave.
[2020-09-09] MEDS: metroNIDAZOLE 500 MG/100 ML PIGGYBACK 100 MG IV ×2 (00:49→09:21)
[2020-09-09] MEDS: OXYCODONE 5 MG/5 ML ORAL SOLUTION PO ×8 (00:49→19:17)
[2020-09-09 03:48] VITALS: TEMP 36.7
[2020-09-09] MEDS: CIPROFLOXACIN 400 MG/200 ML PIGGYBACK 200 MG IV (05:52)
[2020-09-09] MEDS: KETOROLAC 30 MG/ML VIAL IV ×2 (05:52→11:55)
[2020-09-09] MEDS: LACTATED RINGERS 1,000 ML 100 ML IV (06:32)
--- NOTE | 2020-09-09 06:57 | DI.CT.S_ITS ---
PROCEDURE: CT ABDOMEN PELVIS W CON INDICATIONS: increased LLQ abdominal pain TECHNIQUE: After the administration of oral and intravenous contrast, 5 mm thick sections acquired from the diaphragms to the symphysis. 5 mm thick coronal and sagittal reformats were performed. For radiation dose reduction, the following was used: automated exposure control, adjustment of mA and/or kV according to patient size. COMPARISON: [facility], CT, CT ABDOMEN PELVIS W CON, 09/07/2020, 14:31. FINDINGS: Image quality: Excellent. ABDOMEN: Lung bases: Scarring/atelectasis in the right lung base. Solid organs: Liver is normal in size and enhancement. Gallbladder negative . Biliary system is non-dilated. Pancreas enhances normally. Spleen is normal in size and enhancement. No adrenal nodules. Kidneys are normal in size and enhancement, without hydronephrosis. Numerous colonic diverticula are seen. There is a focally inflamed diverticulum seen on image 66/2, at the junction of the descending and sigmoid colon. No abscess. Surrounding pericolonic inflammatory stranding. This appears grossly unchanged although possible decrease in mural thickening. No free fluid or air. Nodes and vessels: No retroperitoneal or mesenteric adenopathy. Aorta and inferior vena cava are normal in caliber. Miscellaneous: No ventral hernias. PELVIS: Genitourinary: Bladder wall thickness is normal. Miscellaneous: No inguinal hernias or adenopathy. Bones: No suspicious bony lesions. No vertebral body compression fractures. IMPRESSION: Acute diverticulitis involving the junction of the descending and sigmoid colon. No abscess seen. This appears stable to minimally improved since the prior study Dictated by: Pascual Ceja M.D. on 09/09/2020 at 9:07 Approved by: Pascual Ceja M.D. on 09/09/2020 at 9:13
[2020-09-09] MEDS: ONDANSETRON 4 MG/2 ML INJ IV (07:34)
--- NOTE | 2020-09-09 08:23 | PM.PN.1 ---
Subjective Subjective Date Patient Seen: 09/09/20 Time Patient Seen: 08:23 Interval history: Diverticulitis. Patient having fair amount of pain perhaps a even increase little bit. It is require oxycodone every 2 hours to manage the pain. Pain management with this the program is ?adequate?. Additionally started have some dysuria. Nausea after the contrast. Generally does feels poorly and clearly out of her going home today as originally thought. Exam Vital Signs (past 8 hours): - 09/09/20 03:48 Temperature 98.0 F Oxygen Delivery Method Room Air Oxygen Flow Rate 0 Narrative Exam Narrative: Patient seen in his hospital room he is walking back from the bathroom walks very slowly and has a very uncomfortable when he moves period of moves very slowly sitting back down on the bed he is markedly tender left lower quadrant. Lungs are clear heart regular rhythm no murmur gallop. Objective ECG Impression: 1. Diverticulitis that is on appropriate antibiotics apparently. Additionally no evidence for abscess. Concern being is that he is not not improved and that he had a low-grade fever last night. Additionally getting symptoms of dysuria perhaps the bladder is being involved with diverticulitis. Patient will be placed NPO. CBC BMP ordered. Repeat CT with contrast ordered. Will consult Dr. Valerio who apparently is on-call for general surgeon for left message in the operative room as he was busy Labs Result Diagrams: 09/07/20 14:20 09/07/20 14:20 Labs: CBC BMP ordered for this morning. Additionally repeat CT scan Quality VTE Deep Vein Thrombosis/Pulmonary Embolism Present on Admission: No
[2020-09-09 08:44] LABS: Bacteria Urine None Seen; RBC Urine None Seen (0-5/HPF); WBC Urine None Seen (0-5/HPF)
[2020-09-09 08:45] LABS: Appearance Urine UA CLEAR; Bilirubin Urine UA NEGATIVE (NEGATIVE); Color Urine UA YELLOW; Glucose Urine UA NEGATIVE (Negative); Ketones Urine UA NEGATIVE (NEGATIVE); Leukocyte Esterase Urine UA NEGATIVE (NEGATIVE); Nitrite Urine UA NEGATIVE (Negative); Occult Blood Urine UA NEGATIVE (Negative); Protein Urine UA NEGATIVE (Negative); Urobilinogen Urine UA 0.2 E.U./dL (0.2); pH Urine UA 7.5 (4.5-8.0)
[2020-09-09 09:03] LABS: Add Manual Diff / Slide Review NO; Basophils Absolute Auto 0 /uL (0-100); Basophils Percent Auto 0.4 % (0-2); Eosinophils Absolute Auto 0 /uL (0-450); Eosinophils Percent Auto 0.5 % (2-4); Hematocrit 38.5 % (41-53); Hemoglobin 13.2 g/dL (13.5-17.5); Lymphocytes Absolute Auto 1300 /uL (1100-4500); Lymphocytes Percent Auto 17.6 % (25-40); Mean Corpuscular HGB Conc 34.2 % (30-36); Mean Corpuscular Hemoglobin 30.4 PG (26-34); Mean Corpuscular Volume 88.9 fL (80-100); Monocytes Absolute Auto 600 /uL (0-900); Neutrophils Absolute Auto 5600 /uL (1500-7000); Neutrophils Percent Auto 73.5 % (50-75); Platelet Count 158 X10^3/uL (150-400); Red Blood Cell Count 4.33 X10^6/uL (4.5-5.9); Red Cell Distribution Width 12.6 % (11.6-14.8); White Blood Cell Count 7.6 X10^3/uL (4.5-11.0)
[2020-09-09 09:17] LABS: BUN Creatinine Ratio 9.8 (6-22); Blood Urea Nitrogen 9 mg/dL (9-20); Calcium 8.5 mg/dL (8.4-10.2); Carbon Dioxide 30 mmol/L (22-32); Chloride 102 mmol/L (98-107); Estimated Glomerular Filt Rate > 60.0 mL/min (>60); Glucose 88 mg/dL (70-100); HEMOLYSIS < 15 (0-50); Potassium 3.6 mmol/L (3.4-5.1); Sodium 134 mmol/L (137-145)
[2020-09-09 09:25] LABS: Culture Indicated Urine Cult Not Indicated; Urine Comments Microscopic Normal
[2020-09-09 09:26] VITALS: BP 86/56; PULSE 59; RESP 16; TEMP 36.5; O2SAT 100
--- NOTE | 2020-09-09 10:53 | PC.NURSE ---
Addendum entered by Tatiana Viera R.N. 09/09/20 15:04: At this time, patient is tolerating broth. Addendum entered by Tatiana Viera R.N. 09/09/20 15:01: Patient feels like he needs rest and is unable to get it here. Would like to advocate for going home if he could, after zosyn runs and if he can tolerate clear liquids. He no longer is having sharp pains in his abdomen, and is an ICU nurse at [employer] so patient feels like he is in good hands at home. Addendum entered by Tatiana Viera R.N. 09/09/20 14:38: Patient would like to speak w/ Dr. Smalls and discuss his plan of care after clinic hours are over. Addendum entered by Tatiana Viera R.N. 09/09/20 11:35: Patient is wondering about advancing diet. Left message at 1130 w/ Dr. Smalls's nurse. Original Note: Patient denies nausea. Bowel tones active in all 4 quadrants, and patient is mildly distended. Pain is 6/10, but patient states that he feels like his pain has improved from last night.
--- NOTE | 2020-09-09 12:29 | PM.CN ---
History of Present Illness Consult details Date Patient Seen: 09/09/20 Time Patient Seen: 12:29 Chief complaint: LOWER LEFT SEVERE PAIN Reason for consult: Diverticulitis Requesting provider: Alek Smalls Narrative: The patient is a gentleman who has had digestive issues since he was a teenager. There was a. Has life for they act we S somewhat but returned again to having lot of crampy abdominal pain with loose stool and diarrhea. To his knowledge is never had his stool tested. He has seen doctors for this but has not really gotten any relief. He developed vague abdominal pain about 5 days ago. It included cramping and loose stool. He moves his bowels 3 to 5 times a day when he is having loose stool. Two days ago he developed severe left lower quadrant pain. This was made worse by movement. He has never had this kind of pain before. He is mother had a colon resection for diverticulitis and he has a brother who has had diverticulitis. He has had no blood in his stool that he is aware of. He has had no hematemesis. He has been drinking liquids. Meds Home Medications and Allergies Home Medications Medication Instructions Recorded Confirmed Type oxycodone 5 mg capsule 5 mg PO Q8H PRN #20 cap 04/20/20 09/07/20 Rx Allergies Allergy/AdvReac Type Severity Reaction Status Date / Time meperidine [From Demerol] AdvReac Intermediate anxiety, Verified 04/28/20 08:16 dizziness, nausea fentanyl AdvReac Mild anxiety, Verified 04/28/20 08:16 dizziness, nausea, depression Review of Systems Review of Systems Narrative: Patient wears glasses otherwise denied is any problems with his eyes. No double vision. No pain is eyes. No earache, sore throats, or trouble swallowing. Has had multiple nasal surgeries for fracture in his earlier life. No tooth aches. No cough cold or asthma. No heart problems chest pain unusual shortness of breath. No heart murmurs. No vomiting. No black or bloody bowel movements. Did have some dark and green bowel movement since starting antibiotics. No seizures or blackouts. A kidney stone was noted on his CT scan. He has never been symptomatic and has no blood in his urine. No anxiety or depression. No unusual bruising or bleeding. No skin lesions that are new or itching. Exam Vital Signs (past 8 hours): - 09/09/20 09:26 Temperature 97.7 F Pulse Rate 59 L Respiratory Rate 16 Blood Pressure 86/56 L Pulse Oximetry 100 Oxygen Delivery Method Room Air Oxygen Flow Rate 0 Narrative Exam Narrative: No apparent distress. Vital signs are noted. Cooperative pleasant patient. Eyes are nonicteric. Pupils equal round reactive to light. Conjunctivae are pink. Ears without lesion. Nasal septum is midline and I see no polyps. His oral mucosa is dry no open lesions lips have no splits. Teeth are intact. Patient's neck is without adenopathy in the neck or supraclavicular areas. Trachea is midline mobile. Thyroid is not enlarged. No masses in the thyroid are appreciated. His lungs are clear to auscultation without rales or rhonchi. Equal percussion. Heart regular rate and rhythm without murmur gallop. No he for thrill. Abdomen is soft. He has localized Jerri left quadrant he can elsewhere. No palpable masses or hernias appreciated. Scarred his umbilicus is noted. He is somewhat hirsute. No visible open lesions of his skin are appreciated. Texture and turgor is 2+. Patient is alert and oriented x3. Speech rate and content are appropriate. Affect is appropriate. Objective Imaging CT scan - abdomen: My impression: Patient has some mild inflammation near his sigmoid colon. It is a somewhat discrete area. No free air. Normal intestinal caliber. No evidence of obstruction. Labs Result Diagrams: 09/09/20 08:10 09/09/20 08:10 Labs: Laboratory Results - last 24 hr 09/09/20 09/09/20 09/09/20 08:10 08:10 08:20 WBC 7.6 RBC 4.33 L Hgb 13.2 L Hct 38.5 L MCV 88.9 MCH 30.4 MCHC 34.2 RDW 12.6 Plt Count 158 Neut % (Auto) 73.5 Lymph % (Auto) 17.6 L [place] % (Auto) 8.0 Eos % (Auto) 0.5 L Baso % (Auto) 0.4 Neut # (Auto) 5600 Lymph # (Auto) 1300 [place] # (Auto) 600 Eos # (Auto) 0 Baso # (Auto) 0 Sodium 134 L Potassium 3.6 Chloride 102 Carbon Dioxide 30 BUN 9 Creatinine 0.92 Estimated GFR > 60.0 BUN/Creatinine Ratio 9.8 Glucose 88 Calcium 8.5 Urine Color Yellow Urine Appearance Clear Urine pH 7.5 Ur Specific [place] 1.010 Urine Protein Negative Urine Glucose (UA) Negative Urine Ketones Negative Urine Occult Blood Negative Urine Nitrate Negative Urine Bilirubin Negative Urine Urobilinogen 0.2 Ur Leukocyte Esterase Negative Urine RBC None seen Urine WBC None seen Urine Bacteria None seen Ur Culture Indicated? Cult not indicated Micro UA Comment Microscopic normal Assessment & Plan Assessment & Plan narrative: Patient with chronic GI tract symptoms suggesting inflammatory or irritable bowel syndrome. He is 55 and had a colonoscopy about 6 or 7 years ago. If he had inflammatory bowel disease I would have expected them to see that. It is unlikely that this is a perforated colon cancer causing his symptoms. The fact that he has not improved in 2 days of IV antibiotics suggest that we may need to switch his IV antibiotics. He has a normal white blood cell count and other features suggest that he should recover without needing operative intervention. He biotic therefore from metronidazole and Cipro to Zosyn. Will see if that has any effect on his symptomatology. Will follow with you. I did adjust his list of outpatient medications. He told me that he is not taking anything including gabapentin, methylprednisolone, methyl carbon all specifically. So I removed those from his medication list. He was taking them during an injury he had to his back over the summer but is no longer using them. I also have ordered a stool study to see if he has anything abnormal about his stool that might explain his chronic diarrhea. He may be. Hopefully come to operation which I do not think is very likely given his CT findings.
[2020-09-09 13:18] VITALS: BP 96/58; PULSE 59; RESP 16; TEMP 36.4; O2SAT 99
[2020-09-09] MEDS: DEXTROSE 5%-LACTATED RINGERS 1,000 ML 100 ML IV (13:51)
[2020-09-09] MEDS: PIPERACILLIN-TAZO 3.375 GM/50 ML FROZ.PIGGY IV ×2 (13:51→18:01)
[2020-09-09 16:48] VITALS: BP 109/67; PULSE 57; RESP 18; TEMP 36.4; O2SAT 99
--- NOTE | 2020-09-09 18:46 | PM.DS.1 ---
History of Present Illness History of Present Illness Chief complaint: LOWER LEFT SEVERE PAIN Discharge Providers Provider Date of admission: 09/07/20 16:52 Discharge Date: 09/09/20 Primary care physician: Melisa Hahn MD Consults: 09/09/20 08:22 Consult to General Surgery Routine Comment: Consulting Provider: Maverick Valerio Reason for consultation: diverticulitis Has provider been notified: No Discharge provider: Alek Smalls MD Summary Hospital Course Discharge Diagnosis: 1. Diverticulitis 2. Significant pain Hospital Course: Patient was admitted with diagnosis of diverticulitis put period found to be present on CT. He was treated initially with metronidazole and Cipro. Apparently course of stay here he really had minimal improvement. Repeat CT showed no change in the diverticulitis no evidence of abscess. Patient was seen in consultation by Dr. Valerio general surgeon who recommended switching to Zosyn a different antibiotic. During the course of the day patient improved significantly and on the night of discharge he was strongly recommended requesting to be discharged This pain it did improve significantly during the course of the day. There is some questions whether he may have passed a kidney stone. Patient discharged on Augmentin 875 twice a day for 10 days. Additionally oxycodone 5 mg for pain. Follow-up with Dr. pena next week Status at Discharge Cognitive/behavioral status at discharge: oriented Functional status at discharge: independent ambulation Overall status at discharge: patient is not back to baseline Exam Vital Signs (past 8 hours): - 09/09/20 13:18 09/09/20 16:48 Temperature 97.6 F 97.6 F Pulse Rate 59 L 57 L Respiratory Rate 16 18 Blood Pressure 96/58 L 109/67 Pulse Oximetry 99 99 Oxygen Delivery Method Room Air Oxygen Flow Rate 0 Objective Labs Result Diagrams: 09/09/20 08:10 09/09/20 08:10 Labs: Laboratory Results - last 24 hr 09/09/20 09/09/20 09/09/20 08:10 08:10 08:20 WBC 7.6 RBC 4.33 L Hgb 13.2 L Hct 38.5 L MCV 88.9 MCH 30.4 MCHC 34.2 RDW 12.6 Plt Count 158 Neut % (Auto) 73.5 Lymph % (Auto) 17.6 L [place] % (Auto) 8.0 Eos % (Auto) 0.5 L Baso % (Auto) 0.4 Neut # (Auto) 5600 Lymph # (Auto) 1300 [place] # (Auto) 600 Eos # (Auto) 0 Baso # (Auto) 0 Sodium 134 L Potassium 3.6 Chloride 102 Carbon Dioxide 30 BUN 9 Creatinine 0.92 Estimated GFR > 60.0 BUN/Creatinine Ratio 9.8 Glucose 88 Calcium 8.5 Urine Color Yellow Urine Appearance Clear Urine pH 7.5 Ur Specific [place] 1.010 Urine Protein Negative Urine Glucose (UA) Negative Urine Ketones Negative Urine Occult Blood Negative Urine Nitrate Negative Urine Bilirubin Negative Urine Urobilinogen 0.2 Ur Leukocyte Esterase Negative Urine RBC None seen Urine WBC None seen Urine Bacteria None seen Ur Culture Indicated? Cult not indicated Micro UA Comment Microscopic normal Discharge Plan Discharge Plan Patient Disposition: Home Provider Discharge Comment: clear liquid diet appt w Dr. Hahn next week Discharge orders & Medications Prescriptions: New amoxicillin-pot clavulanate [Augmentin] 875-125 mg tablet 1 tab PO BID Qty: 20 RF: 0 Continued oxycodone 5 mg capsule 5 mg PO Q8H PRN (Reason: pain) Qty: 20 RF: 0 Follow up/Referrals: Melisa Hahn MD [Primary Care Provider] - Discharge Health Status Multidrug resistant organism: No MDRO Diet/Activity/Treatments Diet: Clear Liquid Discharge Data Primary Care Provider: Meilsa Hahn Quality VTE Deep Vein Thrombosis/Pulmonary Embolism Present on Admission: No
--- NOTE | 2020-09-09 20:44 | PC.NURSE ---
Evening Shift Note- Patient discharged home per MD. Discharge instructions and education reviewed with patient and signed. Patient dressed and packed up all personal belongings. Patient left with at 1937 with and all personal belongings to personal car. New Rx's [facility] to [facility] in [place].
== END 2020-09-09 19:37 | disposition home or self-care (01) | DRG 392 ==
LOC: ED 16:27 → AC 09-08 07:39
PROVIDERS: Family Medicine; Admitting Provider Family Medicine; Emergency Provider Emergency Medicine; PCP Family Medicine; Referring Provider Emergency Medicine; Visit Provider Family Medicine
DX: K57.32 Diverticulitis of large intestine without perforation or abscess without bleeding (principal); N20.0 Calculus of kidney
CPT/HCPCS: 36415; 36592; 74177; 80048; 80053; 81001; 85025; 87635; 96361; 96374; 96375; 96376; 99222; 99232; 99238; 99252; 99253; 99284; J0744; J1170; J1885; J2270; J2405; J2543; J7121; Q9967

== ENCOUNTER → 2021-01-14 13:53 | Outpatient (CLI) | payer OTHER, SELFPAY ==
--- NOTE | 2021-01-14 13:55 | DI.RAD.S_ITS ---
PROCEDURE: XR FOOT RT MIN 3V INDICATIONS: right great toe crush injury, r/o fracture TECHNIQUE: 3 views of the foot were acquired. COMPARISON: [facility], , FOOT 3V RIGHT, 02/27/2018, 16:39. FINDINGS: Bones: Comminuted fracture of the tuft of the 1st distal phalange. Soft tissues: No tibiotalar joint effusion. Achilles tendon appears normal. IMPRESSION: 1st distal phalange fracture. Dictated by: Darby Pabon MD, PhD on 01/14/2021 at 14:19 Approved by: Darby Pabon MD, PhD on 01/14/2021 at 14:20
== END ==
PROVIDERS: PCP Family Medicine; Referring Provider Physician Assistant; Visit Provider Physician Assistant
DX: S92.421A Displaced fracture of distal phalanx of right great toe, initial encounter for closed fracture (principal); S97.111A Crushing injury of right great toe, initial encounter; X58.XXXA Exposure to other specified factors, initial encounter
CPT/HCPCS: 73630

== ENCOUNTER 2021-08-22 14:33 | Emergency (ER) | payer OTHER, SELFPAY ==
[2021-08-22 14:38] VITALS: BMI 25.8
--- NOTE | 2021-08-22 14:44 | ED.ABDPAIN ---
HPI - Abdominal Pain General Chief Complaint: Abdominal Pain Stated Complaint: Reoccurence of Diverticulitis Time Seen by Provider: 08/22/21 14:38 History of Present Illness HPI narrative: 56-year-old male nonsmoker with history of diverticulitis presents with a chief complaint of recurrence of left lower quadrant pain. About 1 year ago he had an episode of diverticulitis which required hospitalization and IV antibiotics. He did not need surgical intervention. A few weeks ago he developed lower abdominal discomfort which felt similar to his diverticulitis. He presented to the walk-in clinic and was diagnosed with diverticulitis and put on a 7 day course of Cipro and Flagyl. He felt largely better but started feeling bad again a few days ago and presented here for evaluation. His pain is rather persistent and worse with motion, improves with rest. He denies systemic findings such as fever, chills nor nausea or vomiting. He has had no change in bowel habits and affect had a normal bowel movement yesterday. Related Data Previous Rx's Medication Instructions Recorded ciprofloxacin HCl 500 mg tablet 500 mg PO BID #20 tab 08/22/21 metronidazole 500 mg tablet 500 mg PO TID #30 tab 08/22/21 (Flagyl) ondansetron 4 mg disintegrating 4 mg PO TID-QID PRN #10 tab 08/22/21 tablet oxycodone 5 mg tablet 5 mg PO Q4-6H PRN #10 tab 08/22/21 Allergies Allergy/AdvReac Type Severity Reaction Status Date / Time meperidine [From Demerol] AdvReac Intermediate anxiety, Verified 08/22/21 14:45 dizziness, nausea fentanyl AdvReac Mild anxiety, Verified 08/22/21 14:45 dizziness, nausea, depression Review of Systems Review of Systems Narrative: GENERAL: Denies chills, fatigue, malaise, fever, sweats. HEENT: Denies sinus pain, ear pain, sore throat, difficulty swallowing, dizziness. RESPIRATORY: Denies dyspnea, cough, wheezing, hemoptysis, sputum. CARDIOVASCULAR: Denies chest pain, palpitations, orthopnea, edema, GASTROINTESTINAL: See HPI : Denies dysuria, frequency, incontinence, hematuria, urinary retention. MUSCULOSKELETAL: denies weakness, joint pain, or bony pain SKIN: Denies rash, skin lesions, or other NEUROLOGIC: Denies weakness, headache, numbness, change in speech, confusion, seizures, incoordination. PSYCHIATRIC: No concerning psychosocial issues. 12 point review of systems is negative except for those stated above Patient History Medical History Chronic back pain (1991) Fracture of right great toe Fractures (1988) Herniated nucleus pulposus, L4-5 Lumbosacral radiculopathy at L5 Shoulder pain (2013) Surgical History Anesthesia History of excision of mass (1981) History of nasal surgery (1979) History of sinus surgery (2013) History of umbilical hernia repair Status post wrist surgery (1998) Status post wrist surgery (1989) Status post wrist surgery (1988) Family History Father No problems noted. Grandfather No problems noted. Grandmother No problems noted. Mother No problems noted. Grandfather No problems noted. Grandmother No problems noted. Social History marital status: household members: spouse pets and animals: Yes education level: other occupational status: employed other: music,diving,boating seatbelt use: always helmet use: Yes water heater temp set < 120 deg: Yes working smoke detector in home: Yes fire extinguisher in home: Yes carbon monox detector in home: Yes firearms in home: Yes Smoking Status: Never smoker alcohol intake: current during the past year weight has: remained stable well-balanced diet: daily or most days daily servings fruits/ve-4 caffeine: Yes eating out: 1-3 times/week Type(s) of exercise: decline to answer frequency: 3-4 times per week duration: 45-60 minutes/day Smoking Status: Never smoker alcohol intake frequency: holidays/special occasions only Substance Use Type: does not use Exam Narrative Exam Narrative: GENERAL: [56 year old patient appears stated age. Well-developed patient, in mild distress. HEAD: Atraumatic. Normocephalic. EYES: Pupils equal round and reactive. Extraocular motions intact. No scleral icterus. No injection or drainage. ENT: Nose without bleeding, purulent drainage. Throat without erythema, tonsillar hypertrophy or exudate. Airway patent. NECK: Trachea midline. Non tender CARDIOVASCULAR: Regular rate and rhythm without murmurs, gallops, or rubs. RESPIRATORY: Clear to auscultation. Breath sounds equal bilaterally. No wheezes, rales, or rhonchi. GASTROINTESTINAL: Abdomen soft, tender in the left lower quadrant, nondistended. Bowel sounds present in all 4 quadrants EXTREMITIES: No edema or joint tenderness. BACK: Nontender without deformity or crepitance. No flank tenderness. NEURO: AOx3. SKIN: No rash or erythema of visible areas Initial Vital Signs Initial Vital Signs: Vital Signs Pulse Rate 53 L 08/22/21 15:00 Respiratory Rate 17 08/22/21 15:00 Blood Pressure 119/53 L 08/22/21 15:00 Pulse Oximetry 97 08/22/21 15:00 Course Orders Ordered: ED Orders 08/22/21 14:44 Blood Culture Stat 08/22/21 14:53 Complete Blood Count AUTO DIFF Stat Comprehensive Metabolic Panel Stat Sodium Chloride (Normal Saline 0.9%) 1,000 mls @ 1,000 mls/hr IV BOLUS ONE Stop: 08/22/21 15:41 Last Admin: 08/22/21 14:57 Dose: 1,000 mls/hr Documented by: FRANCOISYLOR Vital Signs Vital signs: Vital Signs - 8 hr 08/22/21 15:00 Pulse Rate 53 L Respiratory Rate 17 Blood Pressure 119/53 L Pulse Oximetry 97 MDM - Abdominal Pain Lab Data Result diagrams: 08/22/21 14:53 08/22/21 14:53 Labs: Lab Results 08/22/21 08/22/21 Range/Units 14:53 14:53 WBC 3.6 L (4.5-11.0) X10^3/uL RBC 4.90 (4.5-5.9) X10^6/uL Hgb 14.7 (13.5-17.5) g/dL Hct 43.2 (41-53) % MCV 88.0 (80-100) fL MCH 30.1 (26-34) PG MCHC 34.2 (30-36) % RDW 12.5 (11.6-14.8) % Plt Count 173 (150-400) X10^3/uL Neut % (Auto) 45.5 L (50-75) % Lymph % (Auto) 43.5 H (25-40) % [place] % (Auto) 7.6 (3-14) % Eos % (Auto) 2.7 (2-4) % Baso % (Auto) 0.7 (0-2) % Neut # (Auto) 1600 (3376-6249) /uL Lymph # (Auto) 1600 (0545-7586) /uL [place] # (Auto) 300 (0-900) /uL Eos # (Auto) 100 (0-450) /uL Baso # (Auto) 0 (0-100) /uL Sodium 139 (137-145) mmol/L Potassium 4.2 (3.4-5.1) mmol/L Chloride 105 (98-107) mmol/L Carbon Dioxide 30 (22-32) mmol/L BUN 17 (9-20) mg/dL Creatinine 1.23 (0.66-1.25) mg/dL Estimated GFR > 60.0 (>60) mL/min BUN/Creatinine Ratio 13.8 (6-22) Glucose 99 (70-100) mg/dL Calcium 9.1 (8.4-10.2) mg/dL Total Bilirubin 0.6 (0.2-1.3) mg/dL AST 35 (17-59) IU/L ALT 28 (<50) IU/L Alkaline Phosphatase 50 (38-126) U/L Total Protein 7.2 (6.3-8.2) g/dL Albumin 4.4 (3.5-5.0) g/dL Globulin 2.8 (1.7-4.1) g/dL Albumin/Globulin Ratio 1.6 (1.0-2.8) MDM Narrative Medical decision making narrative: Well-appearing 56-year-old male with recent history of diverticulitis has a recurrence of his symptoms. He had recently been diagnosed clinically and given a 7 day course of antibiotics after which he felt significant improvement only to worsen a few days later. He has pain in his left lower quadrant but no signs of perforation. He is not vomiting, has no fever, stable vital signs and reassuring blood work. We discussed at length various options for how to proceed and sure the opinion that holding off on a CT scan for now is appropriate. It seems likely that perhaps he needed a longer course of antibiotics. We did discuss that there are potentially other options and explanations and that by not performing a CAT scan we do run the risk of missing a different diagnosis, he understands this risk. He has been given return precautions and questions have been answered to his apparent satisfaction Discharge Plan Departure Patient Disposition: Home Clinical Impression: Acute diverticulitis of intestine Instructions: DI for Diverticulitis Activity Restrictions/Additional Instructions: *You have been diagnosed with [acute left lower quadrant pain, likely diverticulitis. Your story, physical exam and labs are very reassuring. Per our discussion, we decided to hold off on a CT scan at this time, but we could certainly consider it if your symptoms persist or change *What to do: *Please continue to take your regular medications as directed. [x ] New medication prescriptions sent to your pharmacy: [[facility]] [ ] New medication written as a paper prescription [ ] No new medications given *Please follow up with your primary care provider in 2-3 days, call for an appointment. Let them know you were seen in the Emergency Department and that we ask that you be seen in follow up. We will electronically transmit a record of today's note if your PCP is in our system *If you do not have a primary care provider please contact the [facility] Resource line at [phone]. They will ask some questions about your medical history and help get you set up with a doctor in the community. *Return to Emergency Department if you should have any new, worsening or concerning symptoms, such as [fever greater than 101 F, shaking chills, worsening pain, persistent vomiting or other bothersome symptoms] Prescriptions: New ciprofloxacin HCl 500 mg tablet 500 mg PO BID Qty: 20 RF: 0 metronidazole [Flagyl] 500 mg tablet 500 mg PO TID Qty: 30 RF: 0 ondansetron 4 mg tablet,disintegrating 4 mg PO TID-QID PRN (Reason: nausea and vomiting) Qty: 10 RF: 0 oxycodone 5 mg tablet 5 mg PO Q4-6H PRN (Reason: pain) Qty: 10 RF: 0 Referrals: Melisa Hahn MD [Primary Care Provider] -
[2021-08-22] MEDS: SODIUM CHLORIDE 0.9% 1,000 ML 1000 ML IV (14:57)
[2021-08-22 14:59] LABS: Add Manual Diff / Slide Review NO; Basophils Absolute Auto 0 /uL (0-100); Basophils Percent Auto 0.7 % (0-2); Eosinophils Absolute Auto 100 /uL (0-450); Eosinophils Percent Auto 2.7 % (2-4); Hematocrit 43.2 % (41-53); Hemoglobin 14.7 g/dL (13.5-17.5); Lymphocytes Absolute Auto 1600 /uL (1100-4500); Lymphocytes Percent Auto 43.5 % (25-40); Mean Corpuscular HGB Conc 34.2 % (30-36); Mean Corpuscular Hemoglobin 30.1 PG (26-34); Monocytes Absolute Auto 300 /uL (0-900); Monocytes Percent Auto 7.6 % (3-14); Neutrophils Absolute Auto 1600 /uL (1500-7000); Neutrophils Percent Auto 45.5 % (50-75); Platelet Count 173 X10^3/uL (150-400); Red Cell Distribution Width 12.5 % (11.6-14.8); White Blood Cell Count 3.6 X10^3/uL (4.5-11.0)
[2021-08-22 15:00] VITALS: BP 119/53; PULSE 53; RESP 17; O2SAT 97
[2021-08-22 15:08] VITALS: PULSE 52; O2SAT 96
[2021-08-22 15:14] LABS: Alanine Aminotransferase 28 IU/L (<50); Albumin 4.4 g/dL (3.5-5.0); Albumin Globulin Ratio 1.6 (1.0-2.8); Alkaline Phosphatase 50 U/L (38-126); Aspartate Aminotransferase 35 IU/L (17-59); BUN Creatinine Ratio 13.8 (6-22); Bilirubin Total 0.6 mg/dL (0.2-1.3); Blood Urea Nitrogen 17 mg/dL (9-20); Calcium 9.1 mg/dL (8.4-10.2); Carbon Dioxide 30 mmol/L (22-32); Chloride 105 mmol/L (98-107); Estimated Glomerular Filt Rate > 60.0 mL/min (>60); Globulin 2.8 g/dL (1.7-4.1); Glucose 99 mg/dL (70-100); HEMOLYSIS 19 (0-50); Potassium 4.2 mmol/L (3.4-5.1); Sodium 139 mmol/L (137-145); Total Protein 7.2 g/dL (6.3-8.2)
[2021-08-22 15:30] VITALS: BP 138/81; PULSE 56; O2SAT 98
== END 2021-08-22 15:50 | disposition home or self-care (01) ==
PROVIDERS: Emergency Provider Emergency Medicine; PCP Family Medicine
DX: K57.92 Diverticulitis of intestine, part unspecified, without perforation or abscess without bleeding (principal)
CPT/HCPCS: 36415; 80053; 85025; 87040; 96360; 99284

== ENCOUNTER 2021-12-04 11:28 | Emergency (ER) | payer OTHER, SELFPAY ==
[2021-12-04] VITALS (11 sets, daily range): BP systolic 115–138; BP diastolic 67–72; PULSE 51–65; RESP 16–26; TEMP 36.6; O2SAT 98–99; BMI 26.6
--- NOTE | 2021-12-04 12:04 | DI.CT.S_ITS ---
PROCEDURE: CT HEAD/BRAIN WO CON INDICATIONS: sudden pain TECHNIQUE: Noncontrast 4.5 mm thick angled axial sections acquired from the foramen magnum to the vertex, with coronal and sagittal reformats. For radiation dose reduction, the following was used: automated exposure control, adjustment of mA and/or kV according to patient size. COMPARISON: None. FINDINGS: Image quality: Excellent. CSF spaces: Basal cisterns are patent. No extra-axial fluid collections. Ventricles are normal in size and shape. Brain: No midline shift. No intracranial masses or hemorrhage. Cisse-white matter interface is normal. Skull and face: Calvarium and visualized facial bones are intact, without suspicious lesions. Sinuses: Visualized sinuses and mastoids are clear. IMPRESSION: No acute intracranial abnormality. Dictated by: Duane Pak D.O. on 12/04/2021 at 11:52 Approved by: Duane Pak D.O. on 12/04/2021 at 11:54
--- NOTE | 2021-12-04 12:08 | ED_ITS ---
HPI - Headache General Chief Complaint: Headache Stated Complaint: SEVER PAIN HEAD Time Seen by Provider: 12/04/21 12:07 Mode of arrival: Ambulatory History of Present Illness HPI Narrative: Patient presents to the ED complaining of sudden onset of headache in the located in the back of the head radiating into both temples. Patient states that the sudden onset happened at approximately 9:00 a.m. this morning while he was taking a shower. Patient reports that he did not take any home medications has never had this happen previously and has never had any reported recent trauma or any past medical history relevant to any neurological disorders. Patient denies any aphasia or hemiparesis or paralysis noted both temporary or permanent. Patient denies any blood thinning medications or taking any regular medication routine medications. He also denies any past medical history. Patient reports that he was having some vision changes and felt like his eyes were not tracking normally. No reported nausea or vomiting fever cough sore throat or congestion. He denies any earache. Related Data Previous Rx's Medication Instructions Recorded ciprofloxacin HCl 500 mg tablet 500 mg PO BID #20 tab 08/22/21 metronidazole 500 mg tablet 500 mg PO TID #30 tab 08/22/21 (Flagyl) ondansetron 4 mg disintegrating 4 mg PO TID-QID PRN #10 tab 08/22/21 tablet oxycodone 5 mg tablet 5 mg PO Q4-6H PRN #10 tab 08/22/21 Allergies Allergy/AdvReac Type Severity Reaction Status Date / Time meperidine [From Demerol] AdvReac Intermediate anxiety, Verified 08/22/21 14:45 dizziness, nausea fentanyl AdvReac Mild anxiety, Verified 08/22/21 14:45 dizziness, nausea, depression Review of Systems Review of Systems ROS Unobtainable: All systems reviewed & are unremarkable except as noted in HPI and below Constitutional Constitutional: Denies chills, Denies fatigue, Denies fever(s), Denies frequent falls, Reports headache(s), Denies lethargy and Denies weakness Eyes Eyes: Denies eye discharge, Denies irritation and Denies loss of vision Comments: positive for changes in vision ENT Ears, Nose, Mouth, and Throat: Denies change in voice, Reports dizziness, Reports headache(s), Denies neck pain, Denies sore throat and Denies throat swelling Cardiovascular Cardiovascular: Denies chest pain, Denies irregular heart rhythm, Denies lightheadedness, Denies palpitations, Denies dyspnea, Denies dyspnea on exertion and Denies orthopnea Respiratory Respiratory: Denies cough, Denies dyspnea, Denies dyspnea on exertion and Denies wheezing Gastrointestinal Gastrointestinal: Denies abdominal pain, Denies change in bowel habits, Denies diarrhea, Denies nausea and Denies vomiting Genitourinary Genitourinary: Denies hematuria, Denies flank pain, Denies urinary incontinence and Denies urinary urgency Musculoskeletal Musculoskeletal: Denies back pain, Denies muscle weakness, Denies neck pain, Denies numbness and Denies tingling Integumentary/Breasts Skin/Breast: Denies pruritus, Denies erythema, Denies rash and Denies wounds Neurologic Neurologic: Denies behavioral changes, Denies confusion, Reports dizziness, Denies frequent falls, Reports headache(s), Denies loss of vision, Denies numbness, Reports other visual disturbances, Denies tingling and Denies weakness Psychiatric Psychiatric: Denies anxiety, Denies behavioral changes, Denies confusion, Denies depression, Denies homicidal ideation and Denies suicidal ideation Endocrine Endocrine: Denies fatigue, Denies flushing and Denies palpitations Hematologic/Lymphatic Hematologic/Lymphatic: Denies easy bruising Allergic/Immunologic Allergic/Immunologic: Denies urticaria, Denies throat swelling and Denies wheezing Patient History Medical History Chronic back pain (1991) Fracture of right great toe Fractures (1988) Herniated nucleus pulposus, L4-5 Lumbosacral radiculopathy at L5 Shoulder pain (2013) Surgical History Anesthesia History of excision of mass (1981) History of nasal surgery (1979) History of sinus surgery (2013) History of umbilical hernia repair Status post wrist surgery (1998) Status post wrist surgery (1989) Status post wrist surgery (1988) Family History Father No problems noted. Grandfather No problems noted. Grandmother No problems noted. Mother No problems noted. Grandfather No problems noted. Grandmother No problems noted. Social History marital status: household members: spouse pets and animals: Yes education level: other occupational status: employed other: music,diving,boating seatbelt use: always helmet use: Yes water heater temp set < 120 deg: Yes working smoke detector in home: Yes fire extinguisher in home: Yes carbon monox detector in home: Yes firearms in home: Yes Smoking Status: Never smoker alcohol intake: current during the past year weight has: remained stable well-balanced diet: daily or most days daily servings fruits/ve-4 caffeine: Yes eating out: 1-3 times/week Type(s) of exercise: decline to answer frequency: 3-4 times per week duration: 45-60 minutes/day Smoking Status: Never smoker alcohol intake frequency: holidays/special occasions only Substance Use Type: does not use Exam Initial Vital Signs Initial Vital Signs: Vital Signs Temperature 97.8 F 12/04/21 11:53 Pulse Rate 65 12/04/21 11:53 Respiratory Rate 16 12/04/21 11:53 Blood Pressure 138/67 12/04/21 11:53 Pulse Oximetry 98 12/04/21 11:53 Const General: cooperative, healthy appearing, comfortable and well groomed Nutritional Appearance: average body habitus Orientation: Orientation [facility] Head: normal to inspection, normocephalic and atraumatic Ears: hearing grossly normal bilaterally, external ears normal and TM's normal bilaterally Nose: external nose normal, nares normal and nasal mucous membranes and turbinates normal Face and sinus: normal facial exam, sinuses nontender and face symmetric Mouth: oral mucosae normal, lip normal, tongue normal and salivary ducts normal Teeth and gingiva: dentition normal Throat: posterior oropharynx normal Eyes General: appearance normal, both eyes and all related structures Alignment and Position: alignment normal and position normal Eyelids: eyelids normal Pupils: PERRL EOM: nystagmus Neck Neck: normal visual inspection, full ROM, no meningeal signs and trachea midline Thyroid: thyroid normal Resp Effort & Inspection: normal respiratory effort and able to speak in complete s entences Cardio Rate: regular rate Rhythm: regular rhythm Heart Sounds: S1 normal and S2 normal GI Inspection: normal to inspection Palpation: soft Back/Spine/Pelvis Cervical Spine: normal cervical lordosis and cervical ROM normal Skin General: no rashes or lesions noted Neuro General: patient alert, patient awake, patient oriented x3, gait normal and normal light touch, pain and propioception Cranial Nerves: nystagmus Cognition: normal cognition Speech: speech normal Gait: normal gait Motor: muscle tone normal throughout Sensory Exam: no sensory deficits noted Pupils: Normal pupillary reactivity/response: right, left and bilateral Course Orders Ordered: ED Orders 12/04/21 12:04 CT head/brain wo con Stat 12/04/21 12:10 CBC Auto Diff [Complete Blood Count AUTO DIFF] Stat CMP [Comprehensive Metabolic Panel] Stat 12/04/21 12:59 CT angio head and neck Stat Reevaluation(s) Reevaluation #1: Patient still complaining of headache rating it a 4/10. Still denies nausea vomiting Vital Signs Vital signs: Vital Signs - 8 hr 12/04/21 11:53 12/04/21 12:03 12/04/21 12:07 Temperature 97.8 F Pulse Rate 65 58 L 60 Respiratory Rate 16 26 H Blood Pressure 138/67 132/68 Pulse Oximetry 98 98 98 12/04/21 12:30 12/04/21 13:00 12/04/21 13:30 Temperature Pulse Rate 60 55 L 51 L Respiratory Rate 25 H 17 19 Blood Pressure Pulse Oximetry 98 98 99 12/04/21 13:38 Temperature Pulse Rate 58 L Respiratory Rate 23 Blood Pressure 126/72 Pulse Oximetry 98 MDM - Headache Differential Diagnosis Differential diagnosis: Likely migraine and tension headache Lab Data Result diagrams: 12/04/21 12:10 12/04/21 12:10 Labs: Lab Results 12/04/21 12/04/21 Range/Units 12:10 12:10 WBC 3.9 L (4.5-11.0) X10^3/uL RBC 4.91 (4.5-5.9) X10^6/uL Hgb 14.9 (13.5-17.5) g/dL Hct 43.0 (41-53) % MCV 87.5 (80-100) fL MCH 30.3 (26-34) PG MCHC 34.6 (30-36) % RDW 12.8 (11.6-14.8) % Plt Count 178 (150-400) X10^3/uL Neut % (Auto) 51.7 (50-75) % Lymph % (Auto) 36.8 (25-40) % [place] % (Auto) 8.3 (3-14) % Eos % (Auto) 2.0 (2-4) % Baso % (Auto) 1.2 (0-2) % Neut # (Auto) 2000 (5292-8437) /uL Lymph # (Auto) 1400 (5722-9807) /uL [place] # (Auto) 300 (0-900) /uL Eos # (Auto) 100 (0-450) /uL Baso # (Auto) 0 (0-100) /uL Sodium 140 (137-145) mmol/L Potassium 4.5 (3.4-5.1) mmol/L Chloride 106 (98-107) mmol/L Carbon Dioxide 30 (22-32) mmol/L BUN 15 (9-20) mg/dL Creatinine 1.05 (0.66-1.25) mg/dL Estimated GFR > 60.0 (>60) mL/min BUN/Creatinine Ratio 14.3 (6-22) Glucose 97 (70-100) mg/dL Calcium 9.5 (8.4-10.2) mg/dL Total Bilirubin 0.8 (0.2-1.3) mg/dL AST 26 (17-59) IU/L ALT 20 (<50) IU/L Alkaline Phosphatase 44 (38-126) U/L Total Protein 7.4 (6.3-8.2) g/dL Albumin 4.5 (3.5-5.0) g/dL Globulin 2.9 (1.7-4.1) g/dL Albumin/Globulin Ratio 1.6 (1.0-2.8) Imaging Data CT scan - head: Radiologist's Impression: PROCEDURE:? CT HEAD/BRAIN WO CON ? INDICATIONS:? sudden pain ? TECHNIQUE:? Noncontrast 4.5 mm thick angled axial sections acquired from the foramen magnum to the vertex, with coronal and sagittal reformats.? For radiation dose reduction, the following was used:? automated exposure control, adjustment of mA and/or kV according to patient size.? ? COMPARISON:? None. ? FINDINGS:? Image quality:? Excellent.? ? CSF spaces:? Basal cisterns are patent.? No extra-axial fluid collections.? Ventricles are normal in size and shape.? ? Brain:? No midline shift.? No intracranial masses or hemorrhage.? Cisse-white matter interface is normal.? ? Skull and face:? Calvarium and visualized facial bones are intact, without suspicious lesions.? ? Sinuses:? Visualized sinuses and mastoids are clear.? ? IMPRESSION:? ? No acute intracranial abnormality. CTA Head: Radiologist's Impression: PROCEDURE:? CT ANGIO HEAD AND NECK ? INDICATIONS:? severe headache ? TECHNIQUE:? After the administration of intravenous contrast, 1 mm thick sections acquired from the aortic arch through the [place].? Post-contrast 4.5 mm thick sections then re-acquired from the foramen magnum to the vertex.? 3-dimensional emwedbh-xdbhebzyu-ohyxbimtmw (MIP) and/or volume rendering reformats were acquired of the central intracranial vasculature and neck separately. ? COMPARISON:? Merged With [facility], CT, CT HEAD/BRAIN WO CON, 12/04/2021, 12:32. ? FINDINGS:? Image quality:? Excellent.? ? HEAD CT ANGIOGRAPHY:? Anterior circulation:? Intracranial internal carotid arteries are normal in size and flow.? The flow within the paired anterior cerebral arteries is normal and symmetric.? The flow within the middle cerebral arteries is normal and symmetric.? The anterior communicating artery is seen.? No aneurysms are seen.? ? Posterior circulation:? Visualized portions of the vertebral arteries d emonstrate normal caliber, and join to form a normal appearing basilar artery.? Flow within the posterior cerebral arteries is normal and symmetric.? No aneurysms are seen.? ? NECK CT ANGIOGRAPHY:? Carotid system:? The great vessels demonstrate a conventional anatomy as they arise from the aortic arch.? The origins of the common carotid arteries appear patent.? The common carotid arteries demonstrate normal caliber and courses.? The bifurcation regions are both widely patent.? The internal carotid arteries demonstrate normal calibers and courses.? ? Posterior circulation:? The origins of the vertebral arteries both appear widely patent.? The more superior extracranial portions of both vertebral arteries also demonstrate normal courses and calibers.? They join to form a normal appearing basilar artery.? ? Soft tissues:? Visualized neck soft tissues demonstrate no suspicious abnormalities.? ? Bones:? No suspicious bony lesions.? Visualized cervical spine appears normally aligned.? Mild mucosal thickening of the paranasal sinuses.? Mild degenerative changes of the cervical spine worse at C5-C6 and C6-C7. ? ? IMPRESSION:? ? No evidence of significant flow limiting stenosis, occlusion, aneurysm or other vascular abnormality of the head or neck. ? Any quantitative measurements of stenosis were performed using NASCET criteria.? Discharge Plan Departure Patient Disposition: Home Clinical Impression: Migraine Instructions: DI for Migraine Prescriptions: No Action ciprofloxacin HCl 500 mg tablet 500 mg PO BID Qty: 20 0RF metronidazole [Flagyl] 500 mg tablet 500 mg PO TID Qty: 30 0RF ondansetron 4 mg tablet,disintegrating 4 mg PO TID-QID PRN (Reason: nausea and vomiting) Qty: 10 0RF oxycodone 5 mg tablet 5 mg PO Q4-6H PRN (Reason: pain) Qty: 10 0RF Referrals: Melisa Hahn MD [Primary Care Provider] -
--- NOTE | 2021-12-04 12:59 | DI.CT.S_ITS ---
PROCEDURE: CT ANGIO HEAD AND NECK INDICATIONS: severe headache TECHNIQUE: After the administration of intravenous contrast, 1 mm thick sections acquired from the aortic arch through the [place]. Post-contrast 4.5 mm thick sections then re-acquired from the foramen magnum to the vertex. 3-dimensional gkqadsw-zzunhdeyu-zvcvskkeif (MIP) and/or volume rendering reformats were acquired of the central intracranial vasculature and neck separately. COMPARISON: [facility], CT, CT HEAD/BRAIN WO CON, 12/04/2021, 12:32. FINDINGS: Image quality: Excellent. HEAD CT ANGIOGRAPHY: Anterior circulation: Intracranial internal carotid arteries are normal in size and flow. The flow within the paired anterior cerebral arteries is normal and symmetric. The flow within the middle cerebral arteries is normal and symmetric. The anterior communicating artery is seen. No aneurysms are seen. Posterior circulation: Visualized portions of the vertebral arteries demonstrate normal caliber, and join to form a normal appearing basilar artery. Flow within the posterior cerebral arteries is normal and symmetric. No aneurysms are seen. NECK CT ANGIOGRAPHY: Carotid system: The great vessels demonstrate a conventional anatomy as they arise from the aortic arch. The origins of the common carotid arteries appear patent. The common carotid arteries demonstrate normal caliber and courses. The bifurcation regions are both widely patent. The internal carotid arteries demonstrate normal calibers and courses. Posterior circulation: The origins of the vertebral arteries both appear widely patent. The more superior extracranial portions of both vertebral arteries also demonstrate normal courses and calibers. They join to form a normal appearing basilar artery. Soft tissues: Visualized neck soft tissues demonstrate no suspicious abnormalities. Bones: No suspicious bony lesions. Visualized cervical spine appears normally aligned. Mild mucosal thickening of the paranasal sinuses. Mild degenerative changes of the cervical spine worse at C5-C6 and C6-C7. IMPRESSION: No evidence of significant flow limiting stenosis, occlusion, aneurysm or other vascular abnormality of the head or neck. Any quantitative measurements of stenosis were performed using NASCET criteria. Dictated by: Duane Pak D.O. on 12/04/2021 at 12:52 Approved by: Duane Pak D.O. on 12/04/2021 at 13:01
[2021-12-04 13:13] LABS: Add Manual Diff / Slide Review NO; Basophils Absolute Auto 0 /uL (0-100); Basophils Percent Auto 1.2 % (0-2); Eosinophils Absolute Auto 100 /uL (0-450); Hemoglobin 14.9 g/dL (13.5-17.5); Lymphocytes Absolute Auto 1400 /uL (1100-4500); Lymphocytes Percent Auto 36.8 % (25-40); Mean Corpuscular HGB Conc 34.6 % (30-36); Mean Corpuscular Hemoglobin 30.3 PG (26-34); Mean Corpuscular Volume 87.5 fL (80-100); Monocytes Absolute Auto 300 /uL (0-900); Monocytes Percent Auto 8.3 % (3-14); Neutrophils Absolute Auto 2000 /uL (1500-7000); Neutrophils Percent Auto 51.7 % (50-75); Platelet Count 178 X10^3/uL (150-400); Red Blood Cell Count 4.91 X10^6/uL (4.5-5.9); Red Cell Distribution Width 12.8 % (11.6-14.8); White Blood Cell Count 3.9 X10^3/uL (4.5-11.0)
[2021-12-04 13:15] LABS: Alanine Aminotransferase 20 IU/L (<50); Albumin 4.5 g/dL (3.5-5.0); Albumin Globulin Ratio 1.6 (1.0-2.8); Alkaline Phosphatase 44 U/L (38-126); Aspartate Aminotransferase 26 IU/L (17-59); BUN Creatinine Ratio 14.3 (6-22); Bilirubin Total 0.8 mg/dL (0.2-1.3); Blood Urea Nitrogen 15 mg/dL (9-20); Calcium 9.5 mg/dL (8.4-10.2); Carbon Dioxide 30 mmol/L (22-32); Chloride 106 mmol/L (98-107); Estimated Glomerular Filt Rate > 60.0 mL/min (>60); Globulin 2.9 g/dL (1.7-4.1); Glucose 97 mg/dL (70-100); HEMOLYSIS < 15 (0-50); Potassium 4.5 mmol/L (3.4-5.1); Sodium 140 mmol/L (137-145); Total Protein 7.4 g/dL (6.3-8.2)
== END 2021-12-04 15:01 | disposition home or self-care (01) ==
PROVIDERS: Emergency Provider Physician Assistant; PCP Family Medicine
DX: G43.909 Migraine, unspecified, not intractable, without status migrainosus (principal)
CPT/HCPCS: 36415; 70450; 70496; 70498; 80053; 85025; 99284; Q9967

== ENCOUNTER 2022-02-19 11:48 | Emergency (ER) | payer OTHER, SELFPAY ==
[2022-02-19 12:06] VITALS: BP 132/71; PULSE 60; RESP 16; TEMP 36.6; O2SAT 97; BMI 27.2
--- NOTE | 2022-02-19 12:12 | ED_ITS ---
HPI - General Adult General Chief complaint: Abdominal Pain Stated complaint: Hx of divertic. abd pain x7days Time Seen by Provider: 02/19/22 12:01 Source: patient Mode of arrival: Family Vehicle Limitations: no limitations History of Present Illness HPI narrative: Patient is a 56-year-old male. Has a history of diverticulitis. States that approximately 1 week ago started having some left lower quadrant abdominal pain consistent with his history of diverticulitis. No fevers. Nausea but no vomiting. Has had some diarrhea without blood. No urinary symptoms. No testicular pain. No chest pain. No shortness of breath. No skin rashes. Has had an umbilical hernia repair in the past but no other abdominal surgeries. Has been admitted in the past because of diverticulitis but he states that his symptoms today are not as bad as what it was at that time. Related Data Previous Rx's Medication Instructions Recorded ciprofloxacin HCl 500 mg tablet 500 mg PO BID #20 tab 08/22/21 metronidazole 500 mg tablet 500 mg PO TID #30 tab 08/22/21 (Flagyl) ondansetron 4 mg disintegrating 4 mg PO TID-QID PRN #10 tab 08/22/21 tablet oxycodone 5 mg tablet 5 mg PO Q4-6H PRN #10 tab 08/22/21 ciprofloxacin HCl 500 mg tablet 500 mg PO BID 10 Days #20 tab 02/19/22 metronidazole 500 mg tablet 500 mg PO TID 10 Days #30 tab 02/19/22 Allergies Allergy/AdvReac Type Severity Reaction Status Date / Time meperidine [From Demerol] AdvReac Intermediate anxiety, Verified 08/22/21 14:45 dizziness, nausea fentanyl AdvReac Mild anxiety, Verified 08/22/21 14:45 dizziness, nausea, depression Review of Systems Review of Systems ROS Unobtainable: All systems reviewed & are unremarkable except as noted in HPI and below Patient History Medical History Chronic back pain (1991) Fracture of right great toe Fractures (1988) Herniated nucleus pulposus, L4-5 Lumbosacral radiculopathy at L5 Shoulder pain (2013) Surgical History Anesthesia History of excision of mass (1981) History of nasal surgery (1979) History of sinus surgery (2013) History of umbilical hernia repair Status post wrist surgery (1998) Status post wrist surgery (1989) Status post wrist surgery (1988) Family History Father No problems noted. Grandfather No problems noted. Grandmother No problems noted. Mother No problems noted. Grandfather No problems noted. Grandmother No problems noted. Social History marital status: household members: spouse pets and animals: Yes education level: other occupational status: employed other: music,diving,boating seatbelt use: always helmet use: Yes water heater temp set < 120 deg: Yes working smoke detector in home: Yes fire extinguisher in home: Yes carbon monox detector in home: Yes firearms in home: Yes Smoking Status: Never smoker alcohol intake: current during the past year weight has: remained stable well-balanced diet: daily or most days daily servings fruits/ve-4 caffeine: Yes eating out: 1-3 times/week Type(s) of exercise: decline to answer frequency: 3-4 times per week duration: 45-60 minutes/day Smoking Status: Never smoker alcohol intake frequency: holidays/special occasions only Substance Use Type: does not use Exam Initial Vital Signs Initial Vital Signs: Vital Signs Temperature 97.9 F 02/19/22 12:06 Pulse Rate 60 02/19/22 12:06 Respiratory Rate 16 02/19/22 12:06 Blood Pressure 132/71 02/19/22 12:06 Pulse Oximetry 97 02/19/22 12:06 Const General: cooperative, healthy appearing and comfortable HENKY Head: normal to inspection and normocephalic Resp Effort & Inspection: normal respiratory effort Auscultation: clear to auscultation bilaterally Cardio Rate: regular rate Rhythm: regular rhythm GI Palpation: soft, No firm, No guarding and tender (Left side abdomen) Neuro General: patient alert, patient awake, patient oriented x3 and moves all extremities Extrem General: normal to inspection and capillary refill normal Psych Appearance: grossly normal and well kempt Course Orders Ordered: ED Orders 02/19/22 12:04 Complete Blood Count AUTO DIFF Stat Comprehensive Metabolic Panel Stat Lipase Stat Discontinued Medications Ciprofloxacin (Ciprofloxacin 250 Mg Tablet) 500 mg PO NOW ONE Stop: 02/19/22 12:13 Last Admin: 02/19/22 12:27 Dose: 500 mg Documented by: SANTIAGO Metronidazole (Metronidazole 500 Mg Tablet) 500 mg PO NOW ONE Stop: 02/19/22 12:13 Last Admin: 02/19/22 12:27 Dose: 500 mg Documented by: SANTIAGO Morphine Sulfate (Morphine 4 Mg/Ml Inj) 4 mg IV NOW ONE Stop: 02/19/22 12:34 Last Admin: 02/19/22 12:46 Dose: 4 mg Documented by: SANTIAGO Vital Signs Vital signs: Vital Signs - 8 hr 02/19/22 12:06 02/19/22 12:30 02/19/22 13:00 Temperature 97.9 F Pulse Rate 60 53 L 48 L Respiratory Rate 16 Blood Pressure 132/71 104/61 100/55 L Pulse Oximetry 97 97 97 02/19/22 13:25 Temperature Pulse Rate 63 Respiratory Rate 16 Blood Pressure 103/72 Pulse Oximetry 96 Medical Decision Making Lab Data Result diagrams: 02/19/22 12:04 02/19/22 12:04 Labs: Lab Results 02/19/22 02/19/22 Range/Units 12:04 12:04 WBC 3.6 L (4.5-11.0) X10^3/uL RBC 5.01 (4.5-5.9) X10^6/uL Hgb 15.2 (13.5-17.5) g/dL Hct 43.5 (41-53) % MCV 86.7 (80-100) fL MCH 30.4 (26-34) PG MCHC 35.0 (30-36) % RDW 12.3 (11.6-14.8) % Plt Count 174 (150-400) X10^3/uL Neut % (Auto) 45.6 L (50-75) % Lymph % (Auto) 43.0 H (25-40) % [place] % (Auto) 7.9 (3-14) % Eos % (Auto) 2.6 (2-4) % Baso % (Auto) 0.9 (0-2) % Neut # (Auto) 1600 (4669-8929) /uL Lymph # (Auto) 1500 (3573-2424) /uL [place] # (Auto) 300 (0-900) /uL Eos # (Auto) 100 (0-450) /uL Baso # (Auto) 0 (0-100) /uL Sodium 138 (137-145) mmol/L Potassium 4.3 (3.4-5.1) mmol/L Chloride 106 (98-107) mmol/L Carbon Dioxide 26 (22-32) mmol/L BUN 15 (9-20) mg/dL Creatinine 0.96 (0.66-1.25) mg/dL Estimated GFR > 60.0 (>60) mL/min BUN/Creatinine Ratio 15.6 (6-22) Glucose 122 H (70-100) mg/dL Calcium 9.3 (8.4-10.2) mg/dL Total Bilirubin 1.4 H (0.2-1.3) mg/dL AST 29 (17-59) IU/L ALT 17 (<50) IU/L Alkaline Phosphatase 45 (38-126) U/L Total Protein 7.3 (6.3-8.2) g/dL Albumin 4.7 (3.5-5.0) g/dL Globulin 2.6 (1.7-4.1) g/dL Albumin/Globulin Ratio 1.8 (1.0-2.8) Lipase 53 (23-300) U/L [facility] Narrative Medical decision making narrative: Patient has had diverticulitis in the past he states this feels like prior episodes of diverticulitis. He tolerated oral medications here in the ER. His labs are unremarkable. Had a discussion with him regarding his symptoms. We did discuss potential complications to include abscess versus perforation versus obstruction. We discussed how we would need a CT scan to evaluate this. We did discuss alternatives to include starting on antibiotics and returning if symptoms worsen in order to avoid potential imaging that may be unnecessary. After this discussion we did opt not to perform a CT scan today. I do not think this is unreasonable given his presentation. He was given 1st dose of antibiot ics here in the ER will send home with prescription for the remainder the course. He was given strict return precautions. He expressed understanding and agreement. Patient is nontoxic appearing. Discharge Plan Departure Patient Disposition: Home Clinical Impression: Abdominal pain, Diverticulitis Instructions: DI for Diverticulitis Activity Restrictions/Additional Instructions: A prescription for antibiotics was electronically transmitted to [facility]. Please take them as directed. I do recommend a bland diet for the next couple days. If your symptoms worsen please return to the emergency department for further evaluation. Prescriptions: New ciprofloxacin HCl 500 mg tablet 500 mg PO BID 10 Days Qty: 20 0RF metronidazole 500 mg tablet 500 mg PO TID 10 Days Qty: 30 0RF No Action ciprofloxacin HCl 500 mg tablet 500 mg PO BID Qty: 20 0RF metronidazole [Flagyl] 500 mg tablet 500 mg PO TID Qty: 30 0RF ondansetron 4 mg tablet,disintegrating 4 mg PO TID-QID PRN (Reason: nausea and vomiting) Qty: 10 0RF oxycodone 5 mg tablet 5 mg PO Q4-6H PRN (Reason: pain) Qty: 10 0RF Referrals: Melisa Hahn MD [Primary Care Provider] -
[2022-02-19 12:21] LABS: Add Manual Diff / Slide Review NO; Basophils Absolute Auto 0 /uL (0-100); Basophils Percent Auto 0.9 % (0-2); Eosinophils Absolute Auto 100 /uL (0-450); Eosinophils Percent Auto 2.6 % (2-4); Hematocrit 43.5 % (41-53); Hemoglobin 15.2 g/dL (13.5-17.5); Lymphocytes Absolute Auto 1500 /uL (1100-4500); Mean Corpuscular Hemoglobin 30.4 PG (26-34); Mean Corpuscular Volume 86.7 fL (80-100); Monocytes Absolute Auto 300 /uL (0-900); Monocytes Percent Auto 7.9 % (3-14); Neutrophils Absolute Auto 1600 /uL (1500-7000); Neutrophils Percent Auto 45.6 % (50-75); Platelet Count 174 X10^3/uL (150-400); Red Blood Cell Count 5.01 X10^6/uL (4.5-5.9); Red Cell Distribution Width 12.3 % (11.6-14.8); White Blood Cell Count 3.6 X10^3/uL (4.5-11.0)
[2022-02-19 12:25] LABS: Alanine Aminotransferase 17 IU/L (<50); Albumin 4.7 g/dL (3.5-5.0); Albumin Globulin Ratio 1.8 (1.0-2.8); Alkaline Phosphatase 45 U/L (38-126); Aspartate Aminotransferase 29 IU/L (17-59); BUN Creatinine Ratio 15.6 (6-22); Bilirubin Total 1.4 mg/dL (0.2-1.3); Blood Urea Nitrogen 15 mg/dL (9-20); Calcium 9.3 mg/dL (8.4-10.2); Carbon Dioxide 26 mmol/L (22-32); Chloride 106 mmol/L (98-107); Estimated Glomerular Filt Rate > 60.0 mL/min (>60); Globulin 2.6 g/dL (1.7-4.1); Glucose 122 mg/dL (70-100); HEMOLYSIS < 15 (0-50); Lipase 53 U/L (23-300); Potassium 4.3 mmol/L (3.4-5.1); Sodium 138 mmol/L (137-145); Total Protein 7.3 g/dL (6.3-8.2)
[2022-02-19] MEDS: CIPROFLOXACIN 250 MG TABLET 500 MG PO (12:27)
[2022-02-19] MEDS: metroNIDAZOLE 500 MG TABLET PO (12:27)
[2022-02-19 12:30] VITALS: BP 104/61; PULSE 53; O2SAT 97
[2022-02-19] MEDS: MORPHINE 4 MG/ML INJ IV (12:46)
[2022-02-19 13:00] VITALS: BP 100/55; PULSE 48; O2SAT 97
[2022-02-19 13:25] VITALS: BP 103/72; PULSE 63; RESP 16; O2SAT 96
== END 2022-02-19 13:36 | disposition home or self-care (01) ==
PROVIDERS: Emergency Provider Emergency Medicine; PCP Family Medicine
DX: K57.92 Diverticulitis of intestine, part unspecified, without perforation or abscess without bleeding (principal)
CPT/HCPCS: 36415; 80053; 83690; 85025; 96374; 99284; J2270

== ENCOUNTER 2022-07-03 20:34 | Emergency (ER) | payer OTHER, SELFPAY ==
[2022-07-03] VITALS (8 sets, daily range): BP systolic 106–137; BP diastolic 65–86; PULSE 70–91; RESP 20–25; TEMP 37.2–37.7; O2SAT 96–98
[2022-07-03 21:05] LABS: Add Manual Diff / Slide Review NO; Basophils Absolute Auto 100 /uL (0-100); Basophils Percent Auto 0.6 % (0-2); Eosinophils Absolute Auto 0 /uL (0-450); Eosinophils Percent Auto 0.3 % (2-4); Hematocrit 44.3 % (41-53); Hemoglobin 15.7 g/dL (13.5-17.5); Lymphocytes Absolute Auto 1400 /uL (1100-4500); Lymphocytes Percent Auto 13.9 % (25-40); Mean Corpuscular HGB Conc 35.5 % (30-36); Mean Corpuscular Hemoglobin 30.5 PG (26-34); Mean Corpuscular Volume 86.1 fL (80-100); Monocytes Absolute Auto 700 /uL (0-900); Monocytes Percent Auto 7.1 % (3-14); Neutrophils Absolute Auto 7700 /uL (1500-7000); Neutrophils Percent Auto 78.1 % (50-75); Platelet Count 168 X10^3/uL (150-400); Red Blood Cell Count 5.14 X10^6/uL (4.5-5.9); Red Cell Distribution Width 12.6 % (11.6-14.8); White Blood Cell Count 9.9 X10^3/uL (4.5-11.0)
[2022-07-03 21:16] LABS: Alanine Aminotransferase 22 IU/L (<50); Albumin 4.8 g/dL (3.5-5.0); Albumin Globulin Ratio 1.6 (1.0-2.8); Alkaline Phosphatase 63 U/L (38-126); Aspartate Aminotransferase 28 IU/L (17-59); BUN Creatinine Ratio 16.3 (6-22); Bilirubin Total 2.2 mg/dL (0.2-1.3); Blood Urea Nitrogen 15 mg/dL (9-20); Calcium 9.2 mg/dL (8.4-10.2); Carbon Dioxide 24 mmol/L (22-32); Chloride 103 mmol/L (98-107); Estimated Glomerular Filt Rate > 60 mL/min (>60); Glucose 113 mg/dL (70-100); HEMOLYSIS < 15 (0-50); Lipase 47 U/L (23-300); Potassium 4.2 mmol/L (3.4-5.1); Sodium 135 mmol/L (137-145); Total Protein 7.8 g/dL (6.3-8.2)
[2022-07-03 21:17] LABS: Lactate (Lactic Acid) 0.9 mmol/L (0.7-2.1)
[2022-07-03] MEDS: MORPHINE 4 MG/ML INJ IV (22:26)
--- NOTE | 2022-07-03 22:43 | DI.CT.S_ITS ---
PROCEDURE: CT ABDOMEN PELVIS W CON INDICATIONS: IV contrast only/left lower quadrant pain TECHNIQUE: After the administration of IV contrast, axial sections were acquired from the lung bases to the pubic symphysis. Coronal and sagittal reformats were performed. For radiation dose reduction, the following was used: automated exposure control, adjustment of mA and/or kV according to patient size. COMPARISON: [facility], CT, CT ABDOMEN PELVIS W CON, 09/09/2020, 8:43. FINDINGS: Image quality: Excellent. Lung bases: There is mild dependent atelectasis. Heart: Heart is normal in size. ABDOMEN: Liver: No mass lesion. Gallbladder: Within normal limits without calcified gallstones. Biliary ducts: No biliary ductal dilatation. Pancreas: Unremarkable. Spleen: Normal in size. Adrenal Glands: No adrenal nodules. Kidneys and Ureters: No hydronephrosis. Stomach and Bowel: Stomach and small bowel loops are normal in caliber and wall thickness. The appendix is normal in appearance. There is colonic diverticulosis throughout the colon with associated diverticular and segmental colonic wall thickening in the proximal transverse colon with extensive pericolonic fat stranding and a small amount of pericolonic free fluid. Findings are consistent with acute diverticulitis. Peritoneum: No diverticular abscess or macroscopic free air. There is a small amount of pericolonic free fluid. Ventral Wall: No hernia. Abdominal Nodes: No retroperitoneal or mesenteric adenopathy by size criteria. Vessels: Aorta and inferior vena cava are normal in size. PELVIS: Pelvic Organs: Unremarkable. Bladder: Unremarkable. Pelvic Nodes: No enlarged lymph nodes. Miscellaneous: No inguinal hernias are seen. Bones: Visualized osseous structures demonstrate no suspicious focal lesions. IMPRESSION: 1. Acute diverticulitis in the proximal transverse colon without evidence of diverticular abscess or macroscopic free air. 2. Given the degree of wall thickening in this region, consider follow-up colonoscopy to exclude an underlying mass. Dictated by: Heriberto Brown M.D. on 07/03/2022 at 23:39 Approved by: Heriberto Brown M.D. on 07/03/2022 at 23:45
--- NOTE | 2022-07-03 22:44 | ED_ITS ---
HPI - Abdominal Pain General Chief Complaint: Abdominal Pain Stated Complaint: DIVERTICULITIS FEVER ABD PAIN Time Seen by Provider: 07/03/22 21:58 Source: patient Mode of arrival: Ambulatory History of Present Illness HPI narrative: Patient complains of left lower quadrant pain and epigastric pain. Patient states feels like diverticulitis again that started this morning. Three episodes in the past. First episode did get admitted. Episodes 2. And 3 was seen in the ER department and discharged home on Cipro and Flagyl. Patient stat es has high tolerance to pain medication. No diarrhea no bloody stools. No urinary complaints. Painful with movement. Family at bedside. Related Data Previous Rx's Medication Instructions Recorded ciprofloxacin HCl 500 mg tablet 500 mg PO BID #20 tabs 08/22/21 metronidazole 500 mg tablet 500 mg PO TID #30 tabs 08/22/21 (Flagyl) ondansetron 4 mg disintegrating 4 mg PO TID-QID PRN nausea and 08/22/21 tablet vomiting #10 tabs oxycodone 5 mg tablet 5 mg PO Q4-6H PRN pain #10 tabs 08/22/21 ciprofloxacin HCl 500 mg tablet 500 mg PO BID #14 tabs 07/04/22 metronidazole 500 mg tablet 500 mg PO TID #21 tabs 07/04/22 ondansetron 4 mg disintegrating 4 mg PO Q8H PRN nausea and 07/04/22 tablet vomiting #10 tabs oxycodone-acetaminophen 5 mg-325 1 tab PO Q4-6H PRN pain #18 tabs 07/04/22 mg tablet (Percocet) Allergies Allergy/AdvReac Type Severity Reaction Status Date / Time meperidine [From Demerol] AdvReac Intermediate anxiety, Verified 08/22/21 14:45 dizziness, nausea fentanyl AdvReac Mild anxiety, Verified 08/22/21 14:45 dizziness, nausea, depression Review of Systems Review of Systems Narrative: GENERAL: Denies chills, fatigue, malaise, fever, sweats. HEENT: Denies sinus pain, ear pain, sore throat RESPIRATORY: Denies dyspnea, cough CARDIOVASCULAR: Denies chest pain, palpitations GASTROINTESTINAL: Denies nausea, vomiting, positive for abdominal pain, negative for bloody stools/diarrhea : Denies dysuria, frequency, hematuria MUSCULOSKELETAL: denies muscle or bony pain SKIN: Denies rash, skin lesions NEUROLOGIC: Denies weakness, numbness ROS Unobtainable: All systems reviewed & are unremarkable except as noted in HPI and below Patient History Medical History Chronic back pain (1991) Fracture of right great toe Fractures (1988) Herniated nucleus pulposus, L4-5 Lumbosacral radiculopathy at L5 Shoulder pain (2013) Surgical History Anesthesia History of excision of mass (1981) History of nasal surgery (1979) History of sinus surgery (2013) History of umbilical hernia repair Status post wrist surgery (1998) Status post wrist surgery (1989) Status post wrist surgery (1988) Family History Father No problems noted. Grandfather No problems noted. Grandmother No problems noted. Mother No problems noted. Grandfather No problems noted. Grandmother No problems noted. Social History marital status: household members: spouse pets and animals: Yes education level: other occupational status: employed other: music,diving,boating seatbelt use: always helmet use: Yes water heater temp set < 120 deg: Yes working smoke detector in home: Yes fire extinguisher in home: Yes carbon monox detector in home: Yes firearms in home: Yes Smoking Status: Never smoker alcohol intake: current during the past year weight has: remained stable well-balanced diet: daily or most days daily servings fruits/ve-4 caffeine: Yes eating out: 1-3 times/week Type(s) of exercise: decline to answer frequency: 3-4 times per week duration: 45-60 minutes/day Smoking Status: Never smoker alcohol intake frequency: holidays/special occasions only Substance Use Type: does not use Exam Initial Vital Signs Initial Vital Signs: Vital Signs Temperature 98.9 F 07/03/22 20:42 Pulse Rate 91 H 07/03/22 20:42 Respiratory Rate 22 07/03/22 20:42 Blood Pressure 137/86 07/03/22 20:42 Pulse Oximetry 96 07/03/22 20:42 Oxygen Delivery Method 07/03/22 20:42 Course Course Course Narrative: No new issues during course of stay Orders Ordered: ED Orders 07/03/22 22:03 EKG-12 Lead Stat 07/03/22 22:43 CT abdomen pelvis w con Stat Discontinued Medications Ciprofloxacin (Ciprofloxacin 250 Mg Tablet) 500 mg PO NOW ONE Stop: 07/04/22 00:33 Last Admin: 07/04/22 00:50 Dose: 500 mg Documented By: EMIL Hydromorphone HCl (Hydromorphone 1 Mg Inj) 1 mg IV NOW ONE Stop: 07/03/22 22:45 Last Admin: 07/03/22 22:48 Dose: 1 mg Documented By: PHILLIP Hydromorphone HCl (Hydromorphone 1 Mg Inj) 1 mg IV Q1H PRN PRN Reason: Pain, Moderate (4-6) Last Admin: 07/04/22 00:11 Dose: 1 mg Documented By: EMIL Hydromorphone HCl (Hydromorphone 1 Mg Inj) 1 mg IV NOW ONE Stop: 07/04/22 00:33 Last Admin: 07/04/22 00:47 Dose: Not Given Documented By: EMIL Sodium Chloride (Normal Saline 0.9%) 1,000 mls @ 1,000 mls/hr IV BOLUS ONE Stop: 07/03/22 23:42 Last Infusion: 07/04/22 00:55 Dose: 0 mls/hr Documented By: Admin: 07/03/22 22:49 Dose: 1,000 mls/hr Documented By: PHILLIP Metronidazole (Metronidazole 500 Mg Tablet) 500 mg PO NOW ONE Stop: 07/04/22 00:33 Last Admin: 07/04/22 00:51 Dose: 500 mg Documented By: EMIL Morphine Sulfate (Morphine 4 Mg/Ml Inj) 4 mg IV NOW ONE Stop: 07/03/22 22:24 Last Admin: 07/03/22 22:26 Dose: 4 mg Documented By: PHILLIP Ondansetron HCl (Ondansetron 4 Mg/2 Ml Inj) 4 mg IV NOW ONE Stop: 07/03/22 22:25 Last Admin: 07/03/22 22:38 Dose: Not Given Documented By: PHILLIP Oxycodone/Acetaminophen (Oxycodone/Acetaminophen 5/325 Tablet) 1 tab PO NOW ONE Stop: 07/04/22 00:48 Last Admin: 07/04/22 00:50 Dose: 1 tab Documented By: EMIL Reevaluation(s) Reevaluation #1: Reviewed results with patient and partner. He does desire discharge home with outpatient therapy for diverticulitis for Flagyl Cipro oxycodone and Zofran. Partner is driving. They do need referral for surgeon here for colonoscopy. Return precautions reviewed with him. He does not want to be admitted Time: 00:34 Vital Signs Vital signs: Vital Signs - 8 hr 07/03/22 23:00 07/03/22 23:00 07/03/22 23:30 Pulse Rate 74 70 Respiratory Rate 21 20 Blood Pressure 110/69 Pulse Oximetry 97 98 Oxygen Delivery Method 07/04/22 00:00 07/04/22 00:04 07/04/22 00:04 Pulse Rate 68 67 Respiratory Rate 24 25 H Blood Pressure 119/59 L Pulse Oximetry 98 99 Oxygen Delivery Method 07/04/22 00:30 07/04/22 00:30 Pulse Rate 69 Respiratory Rate 24 Blood Pressure 110/74 Pulse Oximetry 98 Oxygen Delivery Method Room Air MDM - Abdominal Pain Differential Diagnosis Differential diagnosis: Likely abdominal pain, acute appendicitis, diverticulitis, pancreatitis and small bowel obstruction Lab Data Result diagrams: 07/03/22 20:55 07/03/22 20:55 Labs: Lab Results 07/03/22 07/03/22 07/03/22 Range/Units 20:55 20:55 20:55 WBC 9.9 (4.5-11.0) X10^3/uL RBC 5.14 (4.5-5.9) X10^6/uL Hgb 15.7 (13.5-17.5) g/dL Hct 44.3 (41-53) % MCV 86.1 (80-100) fL MCH 30.5 (26-34) PG MCHC 35.5 (30-36) % RDW 12.6 (11.6-14.8) % Plt Count 168 (150-400) X10^3/uL Neut % (Auto) 78.1 H (50-75) % Lymph % (Auto) 13.9 L (25-40) % Mccracken % (Auto) 7.1 (3-14) % Eos % (Auto) 0.3 L (2-4) % Baso % (Auto) 0.6 (0-2) % Neut # (Auto) 7700 H (8109-6798) /uL Lymph # (Auto) 1400 (2128-3441) /uL Mccracken # (Auto) 700 (0-900) /uL Eos # (Auto) 0 (0-450) /uL Baso # (Auto) 100 (0-100) /uL Sodium 135 L (137-145) mmol/L Potassium 4.2 (3.4-5.1) mmol/L Chloride 103 (98-107) mmol/L Carbon Dioxide 24 (22-32) mmol/L BUN 15 (9-20) mg/dL Creatinine 0.92 (0.66-1.25) mg/dL Estimated GFR > 60 (>60) mL/min BUN/Creatinine Ratio 16.3 (6-22) Glucose 113 H (70-100) mg/dL Lactate 0.9 (0.7-2.1) mmol/L Calcium 9.2 (8.4-10.2) mg/dL Total Bilirubin 2.2 H (0.2-1.3) mg/dL AST 28 (17-59) IU/L ALT 22 (<50) IU/L Alkaline Phosphatase 63 (38-126) U/L Total Protein 7.8 (6.3-8.2) g/dL Albumin 4.8 (3.5-5.0) g/dL Globulin 3.0 (1.7-4.1) g/dL Albumin/Globulin Ratio 1.6 (1.0-2.8) Lipase 47 (23-300) U/L Imaging Data CT scan - abdomen/pelvis: Radiologist's Impression: [place] [address] CT Scan Report Signed Patient: Gm Delgado MR#: [id number] : 1965 Acct:[id number] Age/Sex: 57 / M Date of Service: 07/03/22 Loc: ED Accession Number: [id number] ?? Procedure: CT abdomen pelvis w con Ordering Provider: Ángel Chung MD PROCEDURE:? CT ABDOMEN PELVIS W CON ? INDICATIONS:? IV contrast only/left lower quadrant pain ? TECHNIQUE:? After the administration of IV contrast, axial sections were acquired from the lung bases to the pubic symphysis.? Coronal and sagittal reformats were performed.? For radiation dose reduction, the following was used:? automated exposure control, adjustment of mA and/or kV according to patient size. ? COMPARISON:? [facility], CT, CT ABDOMEN PELVIS W CON, 09/09/2020, 8:43. ? FINDINGS:? Image quality:? Excellent.? ? Lung bases:? There is mild dependent atelectasis.? ? Heart:? Heart is normal in size. ? ? ABDOMEN: Liver:? No mass lesion. Gallbladder:? Within normal limits without calcified gallstones.? ? Biliary ducts:? No biliary ductal dilatation.? ? Pancreas:? Unremarkable.? ? Spleen:? Normal in size.? ? Adrenal Glands:? No adrenal nodules.? ? Kidneys and Ureters:? No hydronephrosis.? ? ? Stomach and Bowel:? Stomach and small bowel loops are normal in caliber and wall thickness.? The appendix is normal in appearance.? There is colonic diverticulosis throughout the colon with associated diverticular and segmental colonic wall thickening in the proximal transverse colon with extensive pericolonic fat stranding and a small amount of pericolonic free fluid.? Findings are consistent with acute diverticulitis.? Peritoneum:? No diverticular abscess or macroscopic free air.? There is a small amount of pericolonic free fluid. ? Ventral Wall: ? No hernia.? Abdominal Nodes:? No retroperitoneal or mesenteric adenopathy by size criteria.? Vessels:? Aorta and inferior vena cava are normal in size.? ? PELVIS: Pelvic Organs:? Unremarkable.? ? Bladder:? Unremarkable.? ? Pelvic Nodes: No enlarged lymph nodes.? Miscellaneous: No inguinal hernias are seen. ? ? ? Bones:? Visualized osseous structures demonstrate no suspicious focal lesions. ? IMPRESSION:? ? 1. Acute diverticulitis in the proximal transverse colon without evidence of diverticular abscess or macroscopic free air. ? 2. Given the degree of wall thickening in this region, consider follow-up colonoscopy to exclude an underlying mass.? ? ? Dictated by: Heriberto Brown M.D. on 07/03/2022 at 23:39 ? ? Approved by: Heriberto Brown M.D. on 07/03/2022 at 23:45 ? ECG Data Interpretation: Normal sinus rhythm normal EKG rate [address] elevation or depression MDM Narrative Medical decision making narrative: Appropriate for discharge home. Antibiotics started here. Pain controlled. Return precautions reviewed with patient and partner. Referral for General surgery for colonoscopy given. Not toxic at discharge. Otherwise exam laboratory studies and imaging are reassuring Discharge Plan Departure Patient Disposition: Home Clinical Impression: Diverticulitis Instructions: DI for Diverticulitis Activity Restrictions/Additional Instructions: No driving or operating machinery tonight or when taking prescribed pain medication. Be sure to complete your antibiotic prescriptions. Call provided general surgery office tomorrow to schedule for colonoscopy. Return if worse if any questions or concerns. No alcohol products while taking these prescription s. Prescriptions: New ondansetron 4 mg tablet,disintegrating 4 mg PO Q8H PRN (Reason: nausea and vomiting) Qty: 10 0RF oxycodone-acetaminophen [Percocet] 5-325 mg tablet 1 tab PO Q4-6H PRN (Reason: pain) Qty: 18 0RF ciprofloxacin HCl 500 mg tablet 500 mg PO BID Qty: 14 0RF metronidazole 500 mg tablet 500 mg PO TID Qty: 21 0RF No Action ciprofloxacin HCl 500 mg tablet 500 mg PO BID Qty: 20 0RF metronidazole [Flagyl] 500 mg tablet 500 mg PO TID Qty: 30 0RF ondansetron 4 mg tablet,disintegrating 4 mg PO TID-QID PRN (Reason: nausea and vomiting) Qty: 10 0RF oxycodone 5 mg tablet 5 mg PO Q4-6H PRN (Reason: pain) Qty: 10 0RF Referrals: Gualberto Perez MD [Physician] - Melisa Hahn MD [Primary Care Provider] - Visit Report Forms: Patient Portal/API
[2022-07-03] MEDS: HYDROMORPHONE 1 MG INJ IV (22:48)
[2022-07-03] MEDS: SODIUM CHLORIDE 0.9% 1,000 ML 1000 ML IV (22:49)
[2022-07-04] VITALS: PULSE 68; RESP 24; O2SAT 98
[2022-07-04 00:04] VITALS: BP 119/59; PULSE 67; RESP 25; O2SAT 99
[2022-07-04] MEDS: HYDROMORPHONE 1 MG INJ IV (00:11)
[2022-07-04 00:30] VITALS: BP 110/74; PULSE 69; RESP 24; O2SAT 98
[2022-07-04] MEDS: CIPROFLOXACIN 250 MG TABLET 500 MG PO (00:50)
[2022-07-04] MEDS: OXYCODONE/ACETAMINOPHEN 5/325 TABLET 1 TAB PO (00:50)
[2022-07-04] MEDS: metroNIDAZOLE 500 MG TABLET PO (00:51)
== END 2022-07-04 01:00 | disposition home or self-care (01) ==
PROVIDERS: Emergency Provider Emergency Medicine; PCP Family Medicine
DX: K57.92 Diverticulitis of intestine, part unspecified, without perforation or abscess without bleeding (principal)
CPT/HCPCS: 36415; 74177; 80053; 83605; 83690; 85025; 87040; 93005; 93010; 96361; 96374; 96375; 96376; 99284; J1170; J2270; Q9967